=== PATIENT | male | born 1935 | race Caucasian/White ===

== ENCOUNTER → 2016-05-31 09:33 | Outpatient (CLI) | payer MEDICARE, OTHER ==
[~2016-05-31 09:33] MED LIST: ASPIRIN325 MG PO; FIBERCON625 MG PO; FLOMAX0.4 MG PO; HYDROCORTISONE30 G8 TOPICAL; IPRAT-ALBUT 0.5-3 ML UPD; Levaquin PO; METAMUCIL PACKE1 PKT PO; MIRALAX17 GM PO; MULTI-DAY VITAM1 TAB PO; MYSOLINE 50 MG50 MG PO; NYSTATIN ORAL SU5 ML PO; PRAVACHOL20 MG PO; PROTONIX40 MG PO; REMERON15 MG PO
[2016-08-20 15:58] VITALS: BMI 21.5
== END | disposition home or self-care (01) ==
LOC: D.CT 09:33
DX: R31.9 Hematuria, unspecified (principal)

== ENCOUNTER 2016-08-01 10:36 | Inpatient (IN) | payer MEDICARE, OTHER ==
[~2016-08-01] VITALS: Ht 177.8 cm; Wt 72.6 kg
--- NOTE | ~2016-08-01 | EC ---
PATIENT:GABI BRYSON JR DATE OF SERVICE: 08/01/16 SEX: M MEDICAL RECORD: [id number] DATE OF : 35 LOCATION:D[facility] AGE OF PATIENT: 81 ADMISSION DATE: 08/01/16 REFERRING PHYSICIAN: INTERPRETING PHYSICIAN: THU MONTES MD ECHOCARDIOGRAM REPORT ECHO CHARGES 4 ECHO COMPLETE CLINICAL DIAGNOSIS: CVA ASSESS FOR CLOTS ECHOCARDIOGRAPHIC MEASUREMENTS (adult normal given) AC root (d.<3.7cm) 4.1 LV Septum d (<1.2 cm> 1.4 Valve Excursion 1.7 LV Septum (systole) 1.6 Left Atria (s.<4.0cm> 3.4 LVPW d(<1.2cm) 1.3 RV (d.<2.3cm) 3.7 LVPW (sytole) 1.7 LV diastole(<5.6CM) 4.4 MV E-F(>70mm/sec) LV systole 3.2 LVOT Diameter 2.0 MV exc.(>10mm) 1.3 Est.ejection fraction (50-75%) Pericardial Effusion N DOPPLER: LVIT A 80.0 E 60.0 LA RVSP 44 LVOT 99 AOP1/2T 592 Asc. Ao 121 RVOT 87 RA PA 114 AV Gradient Peak 5.90 AV Mean 2.92 AV Area 2.6 MV Gradient Peak 3.81 MV Mean 1.76 MV Area COMMENTS: Generating Station Mechanic: Roberto LIEBERMAN Penal Officer:Alli Worley TAPE# PACS DATE OF SERVICE: 08/03/2016 Echocardiogram FINDINGS: 1. Left ventricular chamber size is within normal limits. Left ventricular systolic function is normal. Overall ejection fraction estimated at 55%. 2. Left atrium, right atrium, and right ventricular chamber sizes are within normal limits. 3. Valvular structures have normal structure and motion. ECHOCARDIOGRAM REPORT [id number] GABI BRYSON JR 4. Doppler interrogation reveals mild aortic insufficiency, mild mitral regurgitation, mild to moderate tricuspid regurgitation, no other valvular insufficiency or stenosis. Pulmonary systolic pressure is mildly elevated estimated at 44 mmHg. 5. No evidence of pericardial effusion or left ventricular thrombus. TRANSINT:[id number] Voice Confirmation ID: [id number] DOCUMENT ID: [id number] THU MONTES MD CC: [id number] DICTATION DATE: 08/03/16 1410 ART CONSULTANT: 08/03/16 1517 ADM IN [facility] [address] [id number]
[2016-08-01 11:39] LABS: BASOPHILS 0.3 % (0.0-2.0); EOSINOPHILS 0.3 % (0-7); HEMATOCRIT 35.8 % (42.0-54.0); IMMATURE GRANULOCYTES 0.3 % (0-5); MCH 31.9 pg (26.0-34.0); MCHC 33.5 g/dL (31.0-37.0); MCV 95.2 fL (80.0-100.0); NEUTROPHILS 49.1 % (40-80); PLATELET COUNT 152 10x3/uL (130-400); RBC 3.76 10x6/uL (4.20-6.10); RDW 14.8 % (11.5-14.5); WBC 3.1 10x3/uL (4.8-10.8)
[2016-08-01 12:10] LABS: ALBUMIN 4.1 g/dL (3.4-5.0); ANION GAP 12.6 mmol/L (8-16); BILIRUBIN - TOTAL 0.5 mg/dL (0.2-1.3); CALCIUM 9.6 mg/dL (8.5-10.1); CARBON DIOXIDE 26.5 mmol/L (21.0-32.0); CREATININE - SERUM 1.1 mg/dL (0.6-1.3); POTASSIUM - SERUM 4.1 mmol/L (3.5-5.1); PROTEIN - SERUM 7.6 g/dL (6.4-8.2)
[2016-08-01 14:22] LABS: APPEARANCE CLOUDY (CLEAR); COLOR YELLOW (YELLOW)
[2016-08-01 14:23] LABS: BACTERIA FEW /hpf (NONE SEEN); BILIRUBIN NEGATIVE (NEGATIVE); GLUCOSE NEGATIVE (NEGATIVE); KETONE NEGATIVE (NEGATIVE); LEUKOCYTE ESTERASE TRACE (NEGATIVE); NITRITE NEGATIVE (NEGATIVE); PROTEIN NEGATIVE (NEGATIVE); UROBILINOGEN NORMAL (NORMAL); WHITE CELLS - URINE OCC /hpf (0-5)
[2016-08-01 14:25] LABS: AMORPHOUS SEDIMENT >1+ /lpf (NONE SEEN); MUCUS <1+ /lpf (NONE SEEN)
--- NOTE | 2016-08-01 16:22 | NUR ---
RECEIVED TO ROOM 2218 FROM ER VIA . ORIENTED TO ROOM AND CALL LIGHT SYSTEM. FAMILY AT BEDSIDE. PHARMACY AND PASSWORD OBTAINED AND PLACED IN COMPUTER. BED ALARM ON. YELLOW WRIST BAND, NONSKIDS, AND YELLOW STAR IN PLACE. CALL LIGHT IN REACH. WILL CONTINUE WITH PLAN OF CARE.
[2016-08-01] MEDS ORDERED: MYSOLINE 50 MG50 MG PO (16:25)
[2016-08-01] MEDS ORDERED: FLOMAX0.4 MG PO (16:25)
[2016-08-01] MEDS ORDERED: MIRALAX17 GM PO (16:26)
[2016-08-01] MEDS ORDERED: MULTI-DAY VITAM1 TAB PO (16:27)
[2016-08-01] MEDS ORDERED: FIBERCON625 MG PO (16:27)
--- NOTE | 2016-08-01 16:59 | NUR ---
SCDs APPLIED TO BLE. TERESE MAT ALARM PLACED D/T BED ALARM NOT PROPERLY FUNCTIONING. IS GIVEN TO PATIENT AND EXPLAINED USE TO BOTH HIM AND HIS DAUGHTER. THEY BOTH VERBALIZED UNDERSTANDING. ICE TEA MADE AND GIVEN TO PATIENT.
[2016-08-01 17:09] VITALS: BP 146/68
[2016-08-01 17:49] VITALS: BP 146/68; BMI 23.0
--- NOTE | 2016-08-01 18:25 | NUR ---
SPOKE WITH BEN ABOUT UNCAFIB @ 121 BPM. NEW ORDER TO CONSULT CARDIOLOGY.
--- NOTE | 2016-08-01 18:35 | NUR ---
NO CHANGES IN INITIAL ASSESSMENT. CALL LIGHT IN REACH. SCDs TO BLE. TERESE MAT ALARM ON. DAUGHTER AT BEDSIDE. WILL CONTINUE WITH PLAN OF CARE.
--- NOTE | 2016-08-01 18:47 | NUR ---
PROTONIX 40 MG SIVP PER ORDER. DAUGHTER AT BEDSIDE. CALL LIGHT IN REACH. TERESE MAT ALARM IS STILL ON. INCENTIVE SPIROMETER IS AT BEDSIDE.
[2016-08-01 20:00] VITALS: BP 126/56
--- NOTE | 2016-08-01 20:00 | NUR ---
ASSESSMENT PER FLOWSHEET. SALINE LOCK PATENT RT FOREARM. PT ON TELM. SHOWS SR WITH HR 97. PT CONTINUES TO PULL ELECTRODES OFF. TERESE BED ALARM MAT ON. SR UP X3 CALL LIGHT WITHIN REACHED. YELLOW BAND ON. DOOR OPENED. SCD'S ON. INC URINE COMPLETE BED BATH AND LINENS CHANGED.
--- NOTE | 2016-08-01 21:15 | NUR ---
MEDS GIVEN PER MAR.
--- NOTE | 2016-08-01 22:30 | NUR ---
BED ALARM SOUNDING PATIENT CLIMBING OUT OF BED INC URINE. COMPLETE BED BATH WITH LINENS CHANGED REPLACED TELM. SR UP X3 TERESE BED ALARM MAT ON WITH ALARMS ACTIVATED. DOOR OPENED.
[2016-08-02] VITALS: BP 141/69
--- NOTE | 2016-08-02 01:00 | NUR ---
REMAINS CONFUSED GOT PT UP INTO WC AND SET AT NURSES STATION. CHOCOLATE MILK GIVEN A SNACK . PT LOOKING AT MAGAZINES.
--- NOTE | 2016-08-02 02:35 | NUR ---
RETURNED TOP BED TERESE BED ALARM MAT TURNED ON. SR UP X3 CALL LIGHT WITHIN REACH OFFERED URINAL.
--- NOTE | 2016-08-02 03:30 | NUR ---
EYES CLOSED RESPIRATIONS WITH EASE AND UNLABORED.
[2016-08-02 04:00] VITALS: BP 163/69
--- NOTE | 2016-08-02 04:29 | NUR ---
AROUSES TO VERBAL STIMULI ATTEMPTS TO CLIMB OUT OF BED REPOSITIONED IN BED ATTEMPTS MADE TO RE ORIENT TO TIME AND PLACE. PT RESTING IN BED SR UP X3 CALL LIGHT WITHIN REACH TERESE BED ALARM MAT ON.
--- NOTE | 2016-08-02 05:30 | NUR ---
WOKE UP FOR CXR. REMAINS CONFUSED. TERESE BED ALARM MAT ON ALARMS ACTIVATED.NO CHANGES IN ASSESSMENT.
[2016-08-02 06:40] LABS: HEMATOCRIT 32.8 % (42.0-54.0); HEMOGLOBIN 11.1 g/dL (13.5-17.5); MCHC 33.8 g/dL (31.0-37.0); MCV 94.5 fL (80.0-100.0); PLATELET COUNT 124 10x3/uL (130-400); RBC 3.47 10x6/uL (4.20-6.10); RDW 14.9 % (11.5-14.5)
[2016-08-02 06:42] LABS: INR 1.1 (0.85-1.17); PROTIME 14.1 SECONDS (11.6-15.0)
[2016-08-02 06:49] LABS: ALBUMIN 3.7 g/dL (3.4-5.0); ALKALINE PHOSPHATASE 60 U/L (46-116); ALT (SGPT) 22 U/L (10-68); AMYLASE - SERUM 58 U/L (25-115); CALC OSMOLALITY 268 mosm/kg (275-300); CARBON DIOXIDE 29.6 mmol/L (21.0-32.0); CHLORIDE - SERUM 98 mmol/L (98-107); GLUCOSE 95 mg/dL (74-106); LIPASE 164 U/L (73-393); POTASSIUM - SERUM 3.9 mmol/L (3.5-5.1); PROTEIN - SERUM 6.7 g/dL (6.4-8.2); SODIUM 132 mmol/L (136-145); UREA NITROGEN 23 mg/dL (7-18); eGFR NON AFRICAN AMERICAN 76 mL/min (90-120)
[2016-08-02 06:51] LABS: WBC 2.1 10x3/uL (4.8-10.8)
[2016-08-02 07:53] LABS: LYMPHOCYTES 44 % (15-50); MONOCYTES 2 % (2-11); NEUTROPHILS 51 % (40-80); PLATELET ESTIMATE NORMAL
[2016-08-02 07:57] VITALS: BP 158/72
[2016-08-02 13:04] VITALS: Ht 177.8 cm; Wt 72.6 kg
--- NOTE | 2016-08-02 15:12 | NUR ---
Patient Name: GABI BRYSON Admission Status: ER Accout number: [id number] Admission Date: 08-01-2016 : 1935 Admission Diagnosis: Attending: RYAN Current LOS: 1 Anticipated DC Date: 08-06-2016 Planned Disposition: Home with Home Health Primary Insurance: MEDICARE A & B Discharge Planning Comments: CM MET WITH PATIENTS (AARON) AND DAUGHTER (BEN) REGARDING D/C NEEDS AND PLANS. PATIENT WAS RESTING AT THIS TIME. FAMILY STATES THERE IS 1 STEP TO ENTER HOME AND NO STAIRS INSIDE. PATIENTS DAUGHTER STATED SHE WILL DRIVE HIM HOME AT DISCHARGE. PATIENTS PCP IS DR. TELLES AND PHARMACY IS [facility] [address]. PATIENTS DAUGHTER HAS BEEN HELPING HIM WITH PERSONAL CARE AND MEDICATIONS. PATIENT HAS NOT HAD HOME HEALTH BUT FAMILY HAS CHOSE [facility] AND SIGNED THE TEE FORM. CM WILL CONTINUE TO FOLLOW PATIENT WITH DISCHARGE NEEDS AND PLANS. PCP DR. KOKI ROSAS ON [address] [phone] BEN COREY (DAUGHTER) ([phone]) AARON BRYSON () [phone] [place] Department Supervisor: Blank Santillan How many steps to enter\exit or inside your home? 1 0 * PCP DR. TELLES 0 * Pharmacy [facility] [address] * Preadmission Environment Home with Family 0 * ADLs Partial Dependent 0 * Partial ADLs (Assistance needed) Ambulation Bathing Dressing Medication Management Toileting Transfers 0 * Equipment Walker 0 * List name and contact numbers for known caregivers / representatives who currently or will assist patient after discharge: BEN COREY (DAUGHTER) [phone] AARON BRYSON () [phone] 0 * Community resources currently utilized None 0 * Additional services required to return to the preadmission environment? Yes 0 * Can the patient safely return to the preadmission environment? Yes 0 * Has this patient been hospitalized within the prior 30 days at any hospital? No 0 Grand Total: 0
[2016-08-02 16:14] VITALS: BP 132/62
--- NOTE | 2016-08-02 17:36 | NUR ---
DAUGHTER AT BEDSIDE.PT AWAKENS INT,STILL VERY SLEEPY AND CONFUSED.HAS HAD SEVERAL BROWN LIQUID STOOLS.STILL UNABLE TO WAKE ENOUGH TO DRINK PREP.MONITOR
--- NOTE | 2016-08-02 18:33 | NUR ---
OT NOTE : PT COMPLETD BUE POSITIONING . THANK YOU, HALEIGH SURESH
--- NOTE | 2016-08-02 19:30 | NUR ---
PT RECEIVED RESTING IN BED WITH EYES CLOSED, DAUGHTER AT BEDSIDE. ASSESSMENT COMPLETED, SEE SHIFT ASSESSMENT. SCD'S IN PLACE. PT DENIES PAIN OR NEEDS AT THIS TIME. CALL LIGHT AND H2O IN PT REACH.
--- NOTE | 2016-08-02 19:40 | NUR ---
PT NOTED TO STILL HAVE FULL JUG OF GOLYTELY AT BEDSIDE. WILL ENCOURAGE PT TO COMPLETE DOSE.
--- NOTE | 2016-08-02 21:30 | NUR ---
PT RESTING IN BED WITH EYES CLOSED. NO S/S OF DISTRESS NOTED. PT DENIES PAIN OR NEEDS AT THIS TIME. CALL LIGHT AND H2O IN PT REACH.
--- NOTE | 2016-08-02 23:30 | NUR ---
PT UP IN BED WATCHING TELEVISION. PT HAD REMOVED SCD'S, GOWN, AND TELEMETRY. PT REPOSITIONED IN BED. TELEMETRY PUT BACK IN PLACE, PT DRESSED IN GOWN, AND SCD'S PUT BACK ON. PT THANKED THIS TAX SERVICES INTERN AND STATED, "I DON'T KNOW HOW I GOT ALL TANGLED UP LIKE THAT." PT NOTED TO BE NPO AFTER MIDNIGHT. CALL LIGHT IN PT REACH.
[2016-08-02 23:39] VITALS: BP 128/69
--- NOTE | 2016-08-03 04:00 | NUR ---
RN NOTE: PT LYING IN SUPINE POSITION WITH EYES CLOSED AND UNLABORED BREATHING. SCD'S IN USE ON BLE. IV IN RIGHT FA SALINE LOCKED. SIDE RAILS UP X2 AND BED ALARM ACTIVATED FOR SAFETY.
--- NOTE | 2016-08-03 04:09 | NUR ---
PT HAS ONLY COMPLETED 1/2 JUG OF GOLWell Beyond CareLY. PT STATES, "NO, DON'T THINK I CAN." WHEN ENCOURAGED TO COMPLETE DOSE. WILL CONTINUE TO ENCOURAGE.
--- NOTE | 2016-08-03 04:19 | NUR ---
PT REFUSES TO COMPLETE GOLYTLEY. CALLED [facility], REQUESTED TO SPEAK TO DR. CAGLE, INFORMED THAT THIS NURSE WILL RECEIVE A CALL BACK FROM DR. ARBOLEDA. AWAITING CALL RETURN.
--- NOTE | 2016-08-03 04:25 | NUR ---
RECEIVED CALL BACK FROM DR. ARBOLEDA. DR. ARBOLEDA NOTIFIED OF PT REFUSAL TO COMPLETE GOLYTELY DOSE. NO NEW ORDERS RECEIVED AT THIS TIME.
[2016-08-03 05:49] LABS: BASOPHILS 0.4 % (0.0-2.0); EOSINOPHILS 0.4 % (0-7); HEMATOCRIT 33.3 % (42.0-54.0); HEMOGLOBIN 11.3 g/dL (13.5-17.5); IMMATURE GRANULOCYTES 0.4 % (0-5); LYMPHOCYTES 43.3 % (15-50); MCH 31.9 pg (26.0-34.0); MCHC 33.9 g/dL (31.0-37.0); MCV 94.1 fL (80.0-100.0); MEAN PLATELET VOLUME 8.9 fL (7.4-10.4); MONOCYTES 0.4 % (2-11); NEUTROPHILS 55.1 % (40-80); PLATELET COUNT 117 10x3/uL (130-400); RBC 3.54 10x6/uL (4.20-6.10); WBC 2.4 10x3/uL (4.8-10.8)
[2016-08-03 06:15] LABS: RAPID PLASMA REAGIN Non Reactive (Non Reactive)
[2016-08-03 06:26] LABS: ALBUMIN 3.7 g/dL (3.4-5.0); ALKALINE PHOSPHATASE 65 U/L (46-116); ALT (SGPT) 24 U/L (10-68); CALC OSMOLALITY 268 mosm/kg (275-300); CALCIUM 8.7 mg/dL (8.5-10.1); CARBON DIOXIDE 27.3 mmol/L (21.0-32.0); CHLORIDE - SERUM 97 mmol/L (98-107); CHOL - HDL RATIO 7.1 ratio (2.3-4.9); CHOLESTEROL, TOTAL 184 mg/dL (0-200); GLUCOSE 104 mg/dL (74-106); HDL CHOLESTEROL 26 mg/dL (32-96); LDL CHOLESTEROL 125 mg/dL (0-100); LDL-HDL RATIO 4.8 ratio (1.5-3.5); POTASSIUM - SERUM 3.9 mmol/L (3.5-5.1); PROTEIN - SERUM 6.8 g/dL (6.4-8.2); SODIUM 133 mmol/L (136-145); TRIGLYCERIDE 169 mg/dL (30-200); UREA NITROGEN 20 mg/dL (7-18); eGFR NON AFRICAN AMERICAN 76 mL/min (90-120)
[2016-08-03 08:04] VITALS: BP 144/73
[2016-08-03 08:21] LABS: FOLATE (FOLIC ACID) - SERUM >20.0 ng/mL (>3.0)
--- NOTE | 2016-08-03 08:41 | NUR ---
PT SEEN EARILER AND ASSESSED. NO COMPLAINTS AT PRESENT. FAMILY AT BEDSIDE. NPO FOR EGD THIS AM-CONSENTS SIGNED AND ON CHART. BED ALARM ON AND ACTIVATED. YELLOW ARMBAND ON AND NON SKID SOCKS IN PLACE. CALL LIGHT IN REACH
--- NOTE | 2016-08-03 12:43 | NUR ---
INCONT OF URINE BED CHANGE.PT STILL VERY SEDATED AND MUST BE ASSIST X2 WHILE STANDING.VERY SHAKEY AND LEANS BACK.FALL PREVENTION IN PLACE.MONITOR FOR NEEDS
[2016-08-03 12:45] VITALS: BP 120/63
--- NOTE | 2016-08-03 13:38 | CN ---
PATIENT NAME:GABI BRYSON JR MEDICAL RECORD: [id number] : 35 LOCATION:D[facility] ADMIT DATE: 08/01/16 ACCOUNT: [id number] CONSULTING PHYSICIAN: AMRIT ANDRES MD REFERRING PHYSICIAN: GRETEL AQUINO MD DATE OF CONSULTATION: 08/02/2016 IDENTIFYING DATA: The patient is 81 years old and he is admitted to the hospital on a voluntary basis secondary to mental status changes. CHIEF COMPLAINT: None. HISTORY OF PRESENT ILLNESS: The patient is a very nice man who is not very helpful in giving history. He apparently has been living alone with his who is also advanced in years, but cognitively more intact. She has had a series of illnesses and has been hospitalized and in a rehab facility for some time on an intermittent basis. Apparently, in her absences he has not done well. He has not been eating or taking his medicines correctly, not been taking care of himself and is brought to the hospital for what are deemed acute mental status changes. The patient has a sodium that is slightly low, but his liver functions and other labs are fine. He apparently has a history of alcohol abuse, but reportedly quit drinking about 6 months ago when his became ill. When questioned about this, he says he is only cut back, but then he is evasive about what he likes to drink and how much he will drink. He is denying any thoughts of harming himself or others. He is very polite, cooperative and is giving the information has freely as he can, but it is clear that he is significantly impaired cognitively. MENTAL STATUS EXAMINATION: The patient is awake, alert and oriented to person and place and somewhat to time and situation. His mood is anxious. His affect is constricted. Thought processes are circumstantial. Memory, concentration and abstraction abilities are moderately impaired and he denies that he would seek to harm himself or others as well as overt psychotic symptoms. ASSESSMENT: 1. Probable alcohol abuse. 2. Dementia, type uncertain. PLAN: I think the patient is drinking and I think he is drinking more than he can relate to me. His liver functions are within normal limits, but that could simply mean that his liver is depleted, although he is not jaundiced, so that may not be the case. He also has a slightly low sodium, indicating the possibility that he is not been eating, but drinking beer. The sodium is not low enough in my view to account for the mental status changes even acutely. I do think he is impaired cognitively and although the alcohol may be a contributing factor I think there is an underlying dementia present and it has not been identified in the past because his has been able to guide, direct and ground help. At this point, I do not think he is acutely dangerous in any direct way, but he needs supervision. I do not know if his daughter is able to provide this, I have also been told the is back in the home and I do not know about her condition if she is able to provide it, but I think social service manager needs to be involved to make sure the patient is in a safe environment and is receiving the services that he needs. I would recommend starting a cholinesterase inhibitor. I would also recommend that efforts be made to ensure that he is not abusing alcohol. CONSULT REPORT [id number] GABI BRYSON JR TRANSINT:[id number] Voice Confirmation ID: [id number] DOCUMENT ID: [id number] AMRIT ANDRES MD at 1338 CC: [id number] DICTATION DATE: 08/02/16 1855 EDUCATION ADMINISTRATIVE ASSISTANT: 08/02/162026 ADM IN [facility] [address] [place] [address]
--- NOTE | 2016-08-03 14:34 | NUR ---
Rehab Prescreening Consult recieved and the chart has been reviewed. Yesterday he was so "sedated" he could not participate in therapy. He remains confused and disoriented today according to documentation. There are studies and consults still pending as well. Rehab will follow him while in the hospital to see if confusion clears and he is able to participate in the required therapy 3 hrs a day 5 days a week. Cele Thornton RN Clinical Liaison, Rehab
[2016-08-03 16:10] VITALS: BP 154/61
--- NOTE | 2016-08-03 16:58 | NUR ---
OT NOTE: PT GETTING ECHO IN AM; ATTEMPTED LATER AND HE HAD JUST RETURNED FROM COLONOSCOPY PROCEDURE , HE REMAINS CONFUSED. MET WITH DTR WHO PROVIDED INFO ON PLOF. SHE REPORTED THAT HE HAD BEEN CONTINUALLY DECLINING FOR SEVERAL WEEKS; ATTEMPTED THERAPY AGAIN IN PM, HOWEVER, HE WAS ASLEEP
--- NOTE | 2016-08-03 18:55 | NUR ---
ATE APPROX 50 % OF DINNER.REMAINS WITHOUT DISTRESS.CONT PLAN OF CARE
--- NOTE | 2016-08-03 19:30 | NUR ---
PT RECEIVED RESTING IN BED WITH EYES CLOSED. DAUGHTER AT BEDSIDE. PT REFUSES SCD'S. ASSESSMENT COMPLETE, SEE SHIFT ASSESSMENT. PT DENIES PAIN OR NEEDS AT THIS TIME. CALL LIGHT AND H2O IN PT REACH. BED IN LOW POSITION. SIDE RAILS UP X2.
[2016-08-03 20:33] VITALS: BP 148/70
[2016-08-04 00:17] VITALS: BP 119/63
--- NOTE | 2016-08-04 05:49 | NUR ---
UP IN BATHROM WHILE NURSE IS CHANGING BED AND CLEANING UP PATIENT. HE VOIDED IN THE BED. HE IS IN NO DISTRESS BUT IS VERY SHAKEY. THE BED IS LOW, RAILS UP X/S 2 WITH THE CALL LIGHT AT HE BEDSIDE. RESPIRATIONS ARE GOOD.
[2016-08-04 06:54] LABS: BASOPHILS 0.5 % (0.0-2.0); EOSINOPHILS 0.5 % (0-7); HEMATOCRIT 33.2 % (42.0-54.0); HEMOGLOBIN 11.3 g/dL (13.5-17.5); IMMATURE GRANULOCYTES 0.5 % (0-5); MCV 94.1 fL (80.0-100.0); MEAN PLATELET VOLUME 8.9 fL (7.4-10.4); MONOCYTES 3.3 % (2-11); NEUTROPHILS 54.2 % (40-80); PLATELET COUNT 119 10x3/uL (130-400); RBC 3.53 10x6/uL (4.20-6.10); RDW 14.8 % (11.5-14.5); WBC 2.1 10x3/uL (4.8-10.8)
--- NOTE | 2016-08-04 07:00 | NUR ---
REPORT RECEIVED FROM INSTRUMENT MECHANIC NURSE. CALL LIGHT IN REACH.
[2016-08-04 07:12] LABS: ALBUMIN 3.6 g/dL (3.4-5.0); ANION GAP 13.9 mmol/L (8-16); BILIRUBIN - TOTAL 0.73 mg/dL (0.2-1.3); CALCIUM 8.8 mg/dL (8.5-10.1); CARBON DIOXIDE 26.2 mmol/L (21.0-32.0); CREATININE - SERUM 1.1 mg/dL (0.6-1.3); POTASSIUM - SERUM 4.1 mmol/L (3.5-5.1); PROTEIN - SERUM 6.9 g/dL (6.4-8.2)
--- NOTE | 2016-08-04 08:15 | NUR ---
ASSESSMENT COMPLETED. NEURO CHECK COMPLETED. REFUSES SCDs. TERESE MAT ALARM IS ON. CALL LIGHT IN REACH. WILL CONTINUE WITH PLAN OF CARE.
[2016-08-04 08:24] VITALS: BP 147/72
[2016-08-04 10:12] LABS: FOLATE (FOLIC ACID) - SERUM >20.0 ng/mL (>3.0)
--- NOTE | 2016-08-04 10:33 | NUR ---
SITTING IN CHAIR PER PT. AM MEDS ADMINISTERED. TERESE MAT ALARM ON. CALL LIGHT IN REACH.
--- NOTE | 2016-08-04 10:35 | NUR ---
PATIENT SITTING UP IN CHAIR ALERT. RESPIRATIONS EVEN AND UNLABORED. PRIMARY NURSE DURAN, REFLECTOR DRILLER AND DEBURRER AT BEDSIDE. CALL LIGHT IN REACH.
[2016-08-04 12:14] VITALS: BP 133/72
--- NOTE | 2016-08-04 12:30 | NUR ---
VISITOR IN ROOM AT THIS TIME. CALL LIGHT IN REACH.
--- NOTE | 2016-08-04 14:38 | NUR ---
AMBULATED IN HALLWAY WITH PHYSICAL THERAPY. NOW RESTING WITH EYES CLOSED. RESP EVEN AND UNLABORED. TERESE MAT ALARM ON.
[2016-08-04 16:30] VITALS: BP 111/57
--- NOTE | 2016-08-04 16:46 | NUR ---
FAMILY AT BEDSIDE. NO DISTRESS NOTED. CALL LIGHT IN REACH.
--- NOTE | 2016-08-04 18:01 | NUR ---
FAMILY CONCERNED THAT PATIENT HAS MITES. CHECKED PER HEATH PEARSON. NO ACTIVE MITES SEEN. PATIENT SCRATCHING AND CLAWING. AT HIMSELF. SPOKE WITH DR. AQUINO. NEW ORDERS RECEIVED. WILL NOTIFY FORMING MILL OPERATOR. NO OTHER CHANGES IN INITIAL ASSESSMENT. FAMILY IN ROOM. TERESE MAT ALARM ON. STILL REFUSES SCDs. CALL LIGHT IN REACH. WILL CONTINUE WITH PLAN OF CARE.
[2016-08-04 20:00] VITALS: BP 118/56
[2016-08-05] VITALS: BP 133/57
--- NOTE | 2016-08-05 01:48 | NUR ---
REC'D PATIENT LYING IN BED DAUGHTER WAS AT BEDSIDE. NO DISTRESS NOTED. ALERT AND ORIENT ONLY TO PERSON. DENIED PAIN AT THIS TIME. DENIED FURTHER NEEDS AT THIS TIME. INTRUCTED TO CALL IF NEEDED ANYTHING. BED LOW, LOCKED, CALL LIGHT IN REACH, ALARM ON.
--- NOTE | 2016-08-05 01:50 | NUR ---
MILLIE GOODWIN GAVE PATIENT A BATH AND CHANGED LINENS, I CAME BACK AND PATIENT WAS OOB GOING TO THE BATHRROM, ALARM WAS SOUNDING. HIS BED WAS WET CHANGED LINENS AGAIN AND LAYED HIM BACK DOWN. INSTRUCTED TO CALL IF NEEDED ANYTHING. BED LOW, LOCKED, CALL LIGHT IN REACH, ALARM ON.
--- NOTE | 2016-08-05 03:03 | NUR ---
PATIENT IS RESTING IN BED. NO DISTRESS NOTED. DENIED PAIN AT THIS TIME. DENIED FURTHER NEEDS. INSTRUCTED TO USE HIS CALL LIGHT IF NEEDED ANYTHING. VERBALIZED UNDERSTANDING. BED LOW, LOCKED, CALL LIGHT IN REACH.
[2016-08-05 04:00] VITALS: BP 145/52
--- NOTE | 2016-08-05 04:33 | NUR ---
PATIENT RESTING IN BED WITH EYES CLOSED, NO VISIBLE SIGNS OF DISTRESS. BED IN LOWEST POSITION AND CALL LIGHT WITHIN REACH.
[2016-08-05 05:30] LABS: BASOPHILS 0.5 % (0.0-2.0); EOSINOPHILS 0.5 % (0-7); HEMATOCRIT 32.4 % (42.0-54.0); IMMATURE GRANULOCYTES 0.5 % (0-5); LYMPHOCYTES 40.6 % (15-50); MCH 31.9 pg (26.0-34.0); MCV 93.9 fL (80.0-100.0); MEAN PLATELET VOLUME 8.9 fL (7.4-10.4); MONOCYTES 4.1 % (2-11); NEUTROPHILS 53.8 % (40-80); PLATELET COUNT 120 10x3/uL (130-400); RBC 3.45 10x6/uL (4.20-6.10); RDW 14.9 % (11.5-14.5); WBC 2.2 10x3/uL (4.8-10.8)
[2016-08-05 06:02] LABS: ALBUMIN 3.5 g/dL (3.4-5.0); ANION GAP 12.8 mmol/L (8-16); BILIRUBIN - TOTAL 0.51 mg/dL (0.2-1.3); CALCIUM 8.5 mg/dL (8.5-10.1); CREATININE - SERUM 1.2 mg/dL (0.6-1.3); POTASSIUM - SERUM 3.8 mmol/L (3.5-5.1); PROTEIN - SERUM 6.8 g/dL (6.4-8.2)
--- NOTE | 2016-08-05 07:35 | NUR ---
WALKING ROUNDS,WITHOUT DISTRESS. ASSESSMENT PER FLOW SHEET.PT DENIES NEEDS. CALL LIGHT IN REACH.FALL PRVENTION IN PROGRESS.
[2016-08-05 08:14] VITALS: BP 128/67
--- NOTE | 2016-08-05 12:00 | NUR ---
BITES OF FOOD FOR LUNCH.PT WITHOUT DISTRESS.CALL LIGHT IN REACH
[2016-08-05 12:44] VITALS: BP 139/59
[2016-08-05 15:50] VITALS: BP 122/57
[2016-08-05 19:00] VITALS: BP 130/68
--- NOTE | 2016-08-05 19:47 | NUR ---
UP IN CHAIR FOR DINNER.FEEDING SELF.WITHOUT DISTRESS.WITHOUT CHANGE.CONT PLAN OF CARE
--- NOTE | 2016-08-05 20:00 | NUR ---
ASSESSMENT PER FLOWSHEET. SITTING UP IN CHAIR AT BEDSIDE. RELATIVE AT BEDSIDE. CHAIR ALARM ON. IV SALINE LOCK TO RT WRIST. ASSISTED BACK TO BED SR UP X3 CALL LIGHT WITHIN REACH TERESE BED ALARM MAT. ON.
--- NOTE | 2016-08-05 21:30 | NUR ---
MEDS GIVEN PER JUN. GIVEN IN JUICE.
[2016-08-06] VITALS: BP 132/68
--- NOTE | 2016-08-06 | NUR ---
EYES CLOSED RESPIRATIONS WITH EASE AND UNLABORED.
--- NOTE | 2016-08-06 01:49 | NUR ---
AWAKE TRYING TO GET OUT OF BED. BED ALARM SOUNDING. ASSISTED IN BED REPOSITIONED BED ALARM MAT REACTIVATED. SR UP X3. CALL LIGHT WITHIN REACH.
--- NOTE | 2016-08-06 02:30 | NUR ---
PLACED URINAL VOIDED 125CC'S JESE COLORED URINE.
[2016-08-06 04:00] VITALS: BP 142/69
--- NOTE | 2016-08-06 04:23 | NUR ---
RESTING QUIETLY SR UP X3 TERESE BED ALARM MAT ON
[2016-08-06 06:07] LABS: BASOPHILS 0.5 % (0.0-2.0); EOSINOPHILS 0.5 % (0-7); HEMATOCRIT 32.8 % (42.0-54.0); HEMOGLOBIN 10.9 g/dL (13.5-17.5); IMMATURE GRANULOCYTES 0.5 % (0-5); LYMPHOCYTES 46.2 % (15-50); MCH 31.5 pg (26.0-34.0); MCHC 33.2 g/dL (31.0-37.0); MCV 94.8 fL (80.0-100.0); NEUTROPHILS 49.3 % (40-80); PLATELET COUNT 115 10x3/uL (130-400); RBC 3.46 10x6/uL (4.20-6.10)
[2016-08-06 06:31] LABS: ALBUMIN 3.5 g/dL (3.4-5.0); ANION GAP 13.6 mmol/L (8-16); BILIRUBIN - TOTAL 0.51 mg/dL (0.2-1.3); CALCIUM 8.6 mg/dL (8.5-10.1); CARBON DIOXIDE 26.3 mmol/L (21.0-32.0); CREATININE - SERUM 1.2 mg/dL (0.6-1.3); POTASSIUM - SERUM 3.9 mmol/L (3.5-5.1); PROTEIN - SERUM 6.8 g/dL (6.4-8.2)
--- NOTE | 2016-08-06 07:30 | NUR ---
RECIEVED PT DURING WALKING ROUNDS. PT RESTING COMFORTABLY IN BED WITH NO COMPLAINTS OF PAIN OR DISCOMFORT AT THIS TIME. PT ORIENTED TO SELF AND PLACE ONLY. BED ALARM ON AND FUNCTIONING PROPLERLY. ASSESSMENT DONE PER FLOWSHEET. BED IN LOW POSITION AND CALL LIGHT WITHIN REACH. WILL CONTINUE TO MONITOR.
[2016-08-06 08:34] VITALS: BP 139/70
[2016-08-06 11:25] VITALS: BP 132/64
[2016-08-06] MEDS ORDERED: IPRAT-ALBUT 0.5-3 ML UPD ×2 (11:51)
[2016-08-06] MEDS ORDERED: REMERON15 MG PO (11:51)
[2016-08-06] MEDS ORDERED: ASPIRIN325 MG PO (11:51)
[2016-08-06] MEDS ORDERED: HYDROCORTISONE30 G8 TOPICAL (11:52)
[2016-08-06] MEDS ORDERED: PROTONIX40 MG PO (11:52)
--- NOTE | 2016-08-06 12:46 | NUR ---
OT NOTE: PT REPORTED THAT HE WAS FEELING GOOD; PERFORMED BED MOB AND STATIC/DYNAMIC SITTNG ON EDGE OF BED WHILE PERFORMING UE AROM EXS; PT CONT TO PERSEVERATE ON WORDS..TODAY, HE WAS ASKED HIS NAME, HE STATED ,"SHIRA THOMAS" . THEN THIS WORD WAS THE ANSWER FOR EVERYTHING FOR NEXT SEVERAL QUESIONS. UNABLE TO STATE ANY FAMILY MEMBERS OR NAMES; DISORIENTED TO TIME, PLACE, AND SITUATION. SIT TO STAND WITH MIN/MOD ASSIST FOR STANDING BALANCE, HOWEVER, WAS ABLE TO FOLLOW APPROX 75% SIMPLE COMMANDS WITH LESS REDIRECTION THAN LAST WEEK
--- NOTE | 2016-08-06 15:18 | NUR ---
CM REASSESSMENT NOTE: PATIENT IS DISCHARGING TO IP REHAB TODAY. D/C IMM NOTICE SERVED AND SIGNED
[2016-08-06 15:40] VITALS: BP 131/64
--- NOTE | 2016-08-06 16:20 | NUR ---
CM REASSESSMENT NOTE: PATIENT IS NOT DISCHARGING TO IP REHAB DUE TO FURTHER TESTING BY DR. DEL CID.
--- NOTE | 2016-08-06 18:28 | NUR ---
PATIENT IS SITTING UP IN CHAIR. FAMILY MEMBER AT BEDSIDE. RESPIRATIONS ARE EVEN AND UNLABORED ON ROOM AIR. BOTH DENY NEEDS. CALL LIGHT IN REACH.
[2016-08-06 19:00] VITALS: BP 149/72
--- NOTE | 2016-08-06 20:00 | NUR ---
ASSESSMENT PER FLOWSHEET. PT SITTING UP IN CHAIR AT BEDSIDE TERESE MAT IN CHAIR ALARMS ACTIVATED. SALINE LOCK PATENT RT ARM SITE CLEAR. NO FREE WATER.
--- NOTE | 2016-08-06 21:00 | NUR ---
MEDS GIVEN WITH TEA ASSISTED TO BED BRIEFS CHANGED PT INCONTINENT OF URINE. TERESE BED ALARM MAT IN PLACE AND ACTIVATED. DOOR OPENED. SR UP X3.
[2016-08-07] VITALS: BP 144/71
--- NOTE | 2016-08-07 | NUR ---
AREPOSITIONED IN BED SR UP X3 CALL LIGHT WITHIN REACH.NPO FOR BONE MARROW BX IN AM.
[2016-08-07 06:02] LABS: BASOPHILS 0.5 % (0.0-2.0); EOSINOPHILS 0.5 % (0-7); HEMATOCRIT 34.6 % (42.0-54.0); HEMOGLOBIN 11.5 g/dL (13.5-17.5); LYMPHOCYTES 47.2 % (15-50); MCH 31.6 pg (26.0-34.0); MCHC 33.2 g/dL (31.0-37.0); MCV 95.1 fL (80.0-100.0); MONOCYTES 2.8 % (2-11); PLATELET COUNT 114 10x3/uL (130-400); RBC 3.64 10x6/uL (4.20-6.10); RDW 14.9 % (11.5-14.5); WBC 2.2 10x3/uL (4.8-10.8)
[2016-08-07 06:40] LABS: ALBUMIN 3.8 g/dL (3.4-5.0); ANION GAP 13.6 mmol/L (8-16); BILIRUBIN - TOTAL 0.91 mg/dL (0.2-1.3); CALCIUM 8.7 mg/dL (8.5-10.1); CARBON DIOXIDE 27.7 mmol/L (21.0-32.0); CREATININE - SERUM 1.1 mg/dL (0.6-1.3); POTASSIUM - SERUM 4.3 mmol/L (3.5-5.1); PROTEIN - SERUM 6.8 g/dL (6.4-8.2)
--- NOTE | 2016-08-07 07:15 | NUR ---
REPORT RECEIVED FROM HITCHER NURSE. CALL LIGHT IN REACH.
[2016-08-07 08:10] VITALS: BP 142/66
--- NOTE | 2016-08-07 09:15 | NUR ---
IN IR AT THIS TIME.
--- NOTE | 2016-08-07 11:20 | NUR ---
BACK IN ROOM AT THIS TIME. VSS. NO PAIN VOICED. CALL LIGHT IN REACH.
[2016-08-07 11:32] VITALS: BP 135/61
--- NOTE | 2016-08-07 13:10 | NUR ---
SLEEPING AT THIS TIME. RESPIRATIONS EVEN AND NON LABORED. SRX2 WIT BED IN LOWEST POSITION AND WHEELS LOCKED. CALL LIGHT IN REACH, WILL CONTINUE WITH PLAN OF CARE.
--- NOTE | 2016-08-07 14:51 | NUR ---
CM REASSESSMENT NOTE: PATIENT IS DISCHARGING TO IP REHAB TODAY/IMM YESTERDAY
--- NOTE | 2016-08-07 15:25 | NUR ---
MEDS ADMINISTERED PER ORDER. IN ROOM. CALL LIGHT IN REACH.
[2016-08-07 16:44] VITALS: BP 148/71
--- NOTE | 2016-08-07 16:50 | NUR ---
REPORT CALLED TO HEATH ASHLEY.
--- NOTE | 2016-08-07 16:55 | NUR ---
DC INSTRUCTIONS EXPLAINED TO AND SIGNED BY . WANTS HIM TO EAT BEFORE TRANSFERRING HIM.
--- NOTE | 2016-08-07 18:28 | NUR ---
WAITING TO TAKE PATIENT DOWN TO REHAB.
--- NOTE | 2016-08-07 19:07 | NUR ---
TRANSFERRED TO REHAB ROOM 1108B VIA BED.
--- NOTE | 2016-08-10 15:03 | PRO ---
PATIENT:GABI ROSE JR MEDICAL RECORD: [id number] : 35 LOCATION:[id number] ADMISSION DATE: 08/01/16 PROCEDURE PERFORMED BY: LEOPOLDO CAGLE MD DATE OF PROCEDURE: 08/03/2016 PROCEDURES: EGD with biopsy and colonoscopy with biopsy. INDICATIONS: Mr. Rose is an 81-year-old gentleman, who presents to the Emergency Department (with his daughter) with acute mental status changes, history of frequent falls and progressive weakness. Per his daughter's history, he has had poor appetite, become easily fatigued, he has increased somnolence along with the multiple falls. He has become incontinent of bowel and bladder. He has a history of alcohol use "frequent" but not "heavy." He quit drinking 6-7 months ago when his became ill. He has had progressive weight loss, inanition and poor appetite. He presents for inpatient EGD and colonoscopy. PREMEDICATIONS: Total IV anesthesia (propofol 300 mg). INSTRUMENTS: Olympus video gastroscope and Olympus video colonoscope. PROCEDURE AND FINDINGS: After receiving informed consent, Mr. Sanchez's posterior pharynx was anesthetized with Cetacaine spray, was placed in left lateral decubitus position, sedated as per anesthesia. After achieving an adequate level of sedation, gastroscope was introduced per orally and advanced to the duodenum without difficulty. The esophageal mucosa was without erythema or ulcers. At the GE junction was a partial nonobstructing (asymptomatic) Schatzki ring through which the scope transversed easily. A small hiatal hernia is present. Gastric mucosa was notable for minimal prepyloric and antral erythema and antral biopsies were obtained to rule out Helicobacter pylori. No lesions were seen in the cardia, fundus, body of the stomach, antrum or along the incisura. Pylorus was patent and competent. Duodenal mucosa was without erythema or ulcers. Biopsies were obtained from the second portion of duodenum to rule out celiac disease. The gastroscope was then withdrawn. He is prepared for colonoscopy. Digital rectal exam was performed that showed no external hemorrhoidal tags, fissures or fistulas, normal sphincter tone, no palpable rectal masses. The colonoscope was introduced per rectally and advanced to the cecum without difficulty. The cecum, IC valve, and appendiceal orifice were identified. Within the cecum was a diminutive polyp that was cold biopsied. The IC valve was prominent and was biopsied. In the mid ascending colon was a 0.3 cm sessile polyp removed with cold biopsy forcep technique. In the sigmoid colon adjacent to a diverticulum was a 0.75 cm sessile polyp that was removed piecemeal with multiple cold biopsy forceps technique. Multiple diverticula were seen throughout the colon (moderate). Retroflexion in the rectum showed mild internal hemorrhoids. There was thick liquid stool present throughout the colon, but no obvious masses or obstructive lesions were noted. There was no blood seen in the colon. Mr. Roes tolerated the procedure well, no immediate complications. ASSESSMENT: 1. Partial nonobstructing Schatzki ring at the GE junction. 2. Small hiatal hernia. 3. Mild gastritis. PROCEDURE NOTE [id number] BRAYDONGABI 4. Small cecal and ascending colon polyp, status post cold biopsy. 5. Moderate-sized sigmoid polyp, status post cold biopsy. 6. Moderate pandiverticulosis coli. 7. Mild internal hemorrhoids. 8. No obvious upper or lower gastrointestinal etiology to explain inanition and weight loss. RECOMMENDATIONS: 1. Follow up histopathology. 2. Consider hematology/oncology consult regarding pancytopenia. TRANSINT:[id number] Voice Confirmation ID: [id number] DOCUMENT ID: [id number] LEOPOLDO CAGLE MD at 1503 CC: [id number] DICTATION DATE: 08/03/16 1056 CENSUS TAKER: 08/03/162116 DIS IN 08/07/16 [place] [id number] [place] [id number]
== END 2016-08-07 19:07 | DRG 988 ==
LOC: D.ER 10:36 → D.MS 15:15
PROVIDERS: Family Medicine; Internal Medicine Gastroenterology; Internal Medicine Hematology & Oncology; Psychiatry & Neurology Neurology; ADMIT Emergency Medicine
PROC: 0DB68ZX Excision of Stomach, Via Natural or Artificial Opening Endoscopic, Diagnostic (ICD-10-PCS; 2016-08-03)
PROC: 0DBK8ZX Excision of Ascending Colon, Via Natural or Artificial Opening Endoscopic, Diagnostic (ICD-10-PCS; 2016-08-03)
PROC: 0DBN8ZX Excision of Sigmoid Colon, Via Natural or Artificial Opening Endoscopic, Diagnostic (ICD-10-PCS; 2016-08-03)
PROC: 0DBH8ZX Excision of Cecum, Via Natural or Artificial Opening Endoscopic, Diagnostic (ICD-10-PCS; 2016-08-03)
PROC: 0DB98ZX Excision of Duodenum, Via Natural or Artificial Opening Endoscopic, Diagnostic (ICD-10-PCS; principal; 2016-08-03 09:00)
PROC: 0QB33ZX Excision of Left Pelvic Bone, Percutaneous Approach, Diagnostic (ICD-10-PCS; 2016-08-07)
PROC: 07DR3ZX Extraction of Iliac Bone Marrow, Percutaneous Approach, Diagnostic (ICD-10-PCS; 2016-08-07)
DX: I63.9 Cerebral infarction, unspecified (principal); E87.1 Hypo-osmolality and hyponatremia; E46 Unspecified protein-calorie malnutrition; D61.818 Other pancytopenia; R41.89 Other symptoms and signs involving cognitive functions and awareness; F03.90 Unspecified dementia, unspecified severity, without behavioral disturbance, psychotic disturbance, mood disturbance, and anxiety; R53.1 Weakness; N40.0 Benign prostatic hyperplasia without lower urinary tract symptoms; R15.9 Full incontinence of feces; Z86.73 Personal history of transient ischemic attack (TIA), and cerebral infarction without residual deficits; R32 Unspecified urinary incontinence; Z91.81 History of falling; D12.2 Benign neoplasm of ascending colon; D12.0 Benign neoplasm of cecum; D12.5 Benign neoplasm of sigmoid colon; K22.2 Esophageal obstruction; K44.9 Diaphragmatic hernia without obstruction or gangrene; K29.70 Gastritis, unspecified, without bleeding; Z68.23 Body mass index [BMI] 23.0-23.9, adult; K57.90 Diverticulosis of intestine, part unspecified, without perforation or abscess without bleeding; K64.8 Other hemorrhoids; F10.10 Alcohol abuse, uncomplicated; R40.2143 Coma scale, eyes open, spontaneous, at hospital admission; R40.2243 Coma scale, best verbal response, confused conversation, at hospital admission; R40.2363 Coma scale, best motor response, obeys commands, at hospital admission

== ENCOUNTER 2016-08-07 13:31 | Inpatient (IN) | payer MEDICARE, OTHER ==
[~2016-08-07] VITALS: Ht 177.8 cm; Wt 72.6 kg
[~2016-08-07 13:31] MED LIST changes: -Levaquin PO; -METAMUCIL PACKE1 PKT PO; -NYSTATIN ORAL SU5 ML PO; -PRAVACHOL20 MG PO
--- NOTE | 2016-08-07 19:05 | NUR ---
ADMITTED TO UNIT VIA BED, ACCOMPANIED BY FAMILY MEMBER AND ACUTE UNIT STAFF. TERESE ALARM EMPLACED BED ALARM IS INOPERATIVE. ORIENTED X1 ONLY. DROWSY.
[2016-08-07 20:29] VITALS: BP 144/109
--- NOTE | 2016-08-07 21:45 | NUR ---
RESTING IN BED, EYES CLOSED.
--- NOTE | 2016-08-07 23:45 | NUR ---
ADMISSION ASSESSMENT COMPLETE. NOTED PATIENT HAS BOTH DYSPHAGIA WHEN SWALLOWING THIN FLUIDS OR SMALL ORAL MEDS IN APPLESAUCE AND I BELIEVE HE ALSO HAS MILD EXPRESSIVE APHASIA, NEITHER OF WHICH WAS REPORTED BY ACUTE CARE NURSE WHO DELIVERED PATIENT TO US EARLIER KEENA.
--- NOTE | 2016-08-08 02:10 | NUR ---
RESTING IN BED, EYES CLOSED.
--- NOTE | 2016-08-08 04:40 | NUR ---
RESTING QUIETLY IN BED, EYES CLOSED.
[2016-08-08 06:17] LABS: BASOPHILS 0 % (0.0-2.0); EOSINOPHILS 0 % (0-7); HEMATOCRIT 34.8 % (42.0-54.0); HEMOGLOBIN 11.5 g/dL (13.5-17.5); IMMATURE GRANULOCYTES 0.5 % (0-5); LYMPHOCYTES 45.3 % (15-50); MCH 31.7 pg (26.0-34.0); MCV 95.9 fL (80.0-100.0); MEAN PLATELET VOLUME 8.9 fL (7.4-10.4); MONOCYTES 3.4 % (2-11); NEUTROPHILS 50.8 % (40-80); PLATELET COUNT 132 10x3/uL (130-400); RBC 3.63 10x6/uL (4.20-6.10); RDW 14.7 % (11.5-14.5)
--- NOTE | 2016-08-08 06:30 | NUR ---
REMAINS IN BED. CURRENTLY IS DRY TO URINE. TOOK SCHEDULED PROTONIX 40MG PO, WHOLE IN APPLESAUCE WITH CUEING AND SWALLOWING DELAY. HANDLED WATER BETTER THIS MORNING, BUT REQUIRED CUEING TO TAKE SIPS AND TO CONCENTRATE ON SWALLOWING.
[2016-08-08 07:01] LABS: CALC OSMOLALITY 276 mosm/kg (275-300); CALCIUM 9.1 mg/dL (8.5-10.1); CARBON DIOXIDE 25.8 mmol/L (21.0-32.0); CHLORIDE - SERUM 99 mmol/L (98-107); GLUCOSE 83 mg/dL (74-106); POTASSIUM - SERUM 4.4 mmol/L (3.5-5.1); SODIUM 136 mmol/L (136-145); UREA NITROGEN 28 mg/dL (7-18); eGFR NON AFRICAN AMERICAN 76 mL/min (90-120)
--- NOTE | 2016-08-08 07:10 | NUR ---
INTRODUCED SELF TO PT, PT STATES NO NEEDS AT THIS TIME, WILL CONTINUE TO MONITOR, CALL LIGHT WITHIN REACH.
--- NOTE | 2016-08-08 09:54 | NUR ---
MORNING MEDICATION GIVEN, PT HAD SLIGHT PROBLEM SWOLLING WATER, OFFERED THICKENED WATER AND PT TOLERATED BETTER, WILL KEEP PT HEAD OF BED ELEVATED, WILL CONTINUE TO MONITOR, CALL LIGHT WITHIN REACH.
[2016-08-08 10:23] VITALS: BP 129/64
--- NOTE | 2016-08-08 12:40 | NUR ---
PT SITTING IN CHAIR EATING LUNCH, PT STATES NO NEEDS AT THIS TIME, WILL CONTINUE TO MONITOR, CALL LIGHT WITHIN REACH.
[2016-08-08 13:23] VITALS: Ht 177.8 cm; Wt 72.6 kg
--- NOTE | 2016-08-08 14:07 | NUR ---
PT SITTING UP IN CHAIR WATCHING TV, PT STATES NO NEW NEEDS AT THIS TIME, WILL CONTINUE TO MONITOR, CALL LIGHT WITHIN REACH.
--- NOTE | 2016-08-08 15:50 | NUR ---
OT ASSISTING PT WITH SHOWER. WILL CONTINUE TO MONITOR.
--- NOTE | 2016-08-08 16:06 | NUR ---
PT VISITING WITH DAUGHTER, WILLL CONTINUE TO MONITOR, CALL LIGHT WITHIN REACH.
--- NOTE | 2016-08-08 18:22 | NUR ---
PT RESTING IN BED VISITING WITH DAUGHTER AND SON, PT STATES NO NEEEDS AT THIS TIME, WILL CONTINUE TO MONITOR, CALL LIGHT WITHIN REACH.
[2016-08-08 19:15] VITALS: BP 128/74
--- NOTE | 2016-08-08 19:30 | NUR ---
PT. IN BED WITH HOB UP FOR COMFORT AND WATCHING TV. PT. VERY APHASIC AND UNABLE TO ANSWER QUESTIONS APPROPRIATELY. FACIAL EXPRESSION CALM AND VOICE CALM WHEN HE SPEAKS. ASSESSMENT COMPLETED. PT. HAS HIS CALL LIGHT WITHIN REACH.
--- NOTE | 2016-08-08 21:31 | NUR ---
PT. IN BED WITH HOB UP FOR COMFORT WITH EYES CLOSED AND RESP. EVEN. CALL LIGHT WITHIN REACH.
--- NOTE | 2016-08-08 23:31 | NUR ---
PT. IN BED WITH HOB UP FOR COMFORT AND IS AWAKE AND WATCHING TV. NO VOICED NEEDS AND CALL LIGHT IS WITHIN REACH.
--- NOTE | 2016-08-09 01:25 | NUR ---
PT. IN BED WITH HOB UP FOR COMFORT WITH EYES CLOSED AND RESP. DEEP AND EVEN. CALL LIGHT WITHIN REACH.
--- NOTE | 2016-08-09 03:16 | NUR ---
PT. IN BED WITH HOB UP FOR COMFORT LYING ON HIS RIGHT SIDE. EYES CLOSED AND RESP. DEEP AND EVEN. CALL LIGHT WITHIN REACH.
--- NOTE | 2016-08-09 07:30 | NUR ---
RESTING QUIETLY IN BED. EYES CLOSED. NO S/S DISTRESS. SLOW TO AROUSE AND ANSWER QUESTIONS. IS CONFUSED.
[2016-08-09 08:31] VITALS: BP 121/62
--- NOTE | 2016-08-09 12:15 | NUR ---
SITTING UP IN ROOM. SON VISITING PT. PT IS CONFUSED AND QUIET. FOLLOWS SOME SIMPLE COMMANDS. MOD ASST TO TRANSFER.
--- NOTE | 2016-08-09 19:30 | NUR ---
PT. IN BED WITH HOB UP FOR COMFORT AND HAS FAMILY VISITING. PT'S APHASIA HAS NOT GOTTEN ANY BETTER PER THE FAMILY. ASSESSMENT COMPLETED. CALL LIGHT WITHIN REACH.
--- NOTE | 2016-08-09 19:30 | NUR ---
FAMILY REPORTING THAT PT. IS PICKING AT HIS IV SITE AND REQUESTS IT BE REMOVED. PER ASEPTIC TECHNIQUE RT. FOREARM PERIPHERAL IV REMOVED WITH CATHETER TIP INTACT. PRESSURE HELD AND NO VISIBLE BLEEDING OBSERVED. BANDAID APPLIED. PT. TOLERATED PROCEDURE WITHOUT COMPLAINTS. CALL LIGHT REMAINS WITHIN REACH AND FAMILY AT BEDSIDE.
[2016-08-09 21:53] VITALS: BP 126/68
--- NOTE | 2016-08-09 23:11 | NUR ---
PT. IN BED WITH HOB UP FOR COMFORT WITH EYES CLOSED AND RESP. EVEN. CALL LIGHT WITHIN REACH.
--- NOTE | 2016-08-10 02:03 | NUR ---
PT. IN BED WITH HOB UP FOR COMFORT WITH EYES CLOSED AND RESP. EVEN. PT IS RESTLESS IN THE BED BUT REMAINS ASLEEP. CALL LIGHT WITHIN REACH.
--- NOTE | 2016-08-10 04:06 | NUR ---
PT. IN BED LYING ON HIS RIGHT SIDE AND HAS THE BLANKET PULLED ALL THE WAY UP UNDER HIS CHIN. EYES ARE CLOSED AND RESP. EVEN. CALL LIGHT WITHIN REACH.
[2016-08-10 06:43] LABS: BASOPHILS 0 % (0.0-2.0); HEMATOCRIT 34.4 % (42.0-54.0); HEMOGLOBIN 11.3 g/dL (13.5-17.5); LYMPHOCYTES 41.5 % (15-50); MCH 31.4 pg (26.0-34.0); MCHC 32.8 g/dL (31.0-37.0); MCV 95.6 fL (80.0-100.0); MEAN PLATELET VOLUME 9.5 fL (7.4-10.4); MONOCYTES 1.4 % (2-11); NEUTROPHILS 56.1 % (40-80); PLATELET COUNT 152 10x3/uL (130-400); RDW 14.5 % (11.5-14.5); WBC 2.1 10x3/uL (4.8-10.8)
[2016-08-10 07:27] LABS: CALC OSMOLALITY 283 mosm/kg (275-300); CALCIUM 9.2 mg/dL (8.5-10.1); CARBON DIOXIDE 28.9 mmol/L (21.0-32.0); CHLORIDE - SERUM 101 mmol/L (98-107); GLUCOSE 114 mg/dL (74-106); SODIUM 138 mmol/L (136-145); THYROID STIMULATING HORMONE 0.37 uIU/mL (0.36-3.74); UREA NITROGEN 32 mg/dL (7-18); eGFR NON AFRICAN AMERICAN 76 mL/min (90-120)
--- NOTE | 2016-08-10 09:26 | NUR ---
RESTING QUIETLY IN BED. IT TAKES PENIS OUT OF BRIEF AND ENDS UP VOIDING ALL OVER HIMSELF AND BED. HE WAS CLEANED UP THIS MORNING AND TRANSFERED TO W/C WITH MOD ASST. HE FOLLOWS SIMPLE SLOW COMMANDS BUT NOT ALL THE TIME. DTR HELPED HIM WITH BREAKFAST. MOD TO MAX ASST TO TRANSFER BACK TO BED.
[2016-08-10 10:15] VITALS: BP 135/69
--- NOTE | 2016-08-10 14:49 | NUR ---
FAMILY HAS BEEN VISITING AND HELPING PT WITH ADL'S. HE REMAINS CONFUSED AND DROWSY. INCONT OF URINE.
--- NOTE | 2016-08-10 19:35 | NUR ---
PT RECEIVED IN BED WITH EYES OPEN WITH FAMILY AT BEDSIDE. NO CONCERNS NOTED. FAMILY LEFT SHORTLY AFTER LEAVING ROOM. WILL CONTINUE TO OBSERVE. CALL LIGHT IN REACH.
[2016-08-10 20:57] VITALS: BP 127/64
--- NOTE | 2016-08-11 01:14 | NUR ---
PT IN BED WITH EYES OPEN. PAD WAS WET WITH BRIEF SLIGHTLY WET. PT PULLS PENIS OUT OF BRIEF AND URINATES LEAVING BRIEF DRY. PT DOES NOT CALL FOR ASSISTANCE. ASSESS PT FREQUENTLY AND PROVIDE PERICARE NEEDED. WILL CONTINUE TO OBSERVE. CALL LIGHT IN REACH.
--- NOTE | 2016-08-11 06:27 | NUR ---
PT IN BED WITH EYES CLOSED AND CHEST RISING. NO SIGN/SYMPTOMS OF DISTRESS NOTED. EASILY AROUSED TO VERBAL STIMULI. AM MEDICATIONS GIVEN PER MAR WITHOUT DIFFICULTY. CALL LIGHT IN REACH.
[2016-08-11 07:00] VITALS: BP 136/66
--- NOTE | 2016-08-11 08:00 | NUR ---
SHIFT ASSMT COMPLETED.PLEASANTLY CONFUSED;SOME POSSIBLE RECEPTIVE AND EXPRESSIVE APHASIA;SOMETIMES IS ABLE TO FOLLOW SHORT COMMANDS BUT NOT CONSISTENTLY.MEAL SET-UP PROVIDED AND ASSISTED WITH BREAKFAST.
--- NOTE | 2016-08-11 10:00 | NUR ---
WILL POCKET PILLS AND FOOD.1 FINGER SWEEP TO GUMS PERFORMED AND PILLS REMOVED WHAT DID NOT DISSOLVE;REMAINING CRUSHED AND GIVEN IN APPLESAUCE.REMAINS UP IN WC.
--- NOTE | 2016-08-11 12:00 | NUR ---
MEAL GIVEN/OT.
--- NOTE | 2016-08-11 13:00 | NUR ---
REPORTED PET OT THAT AGUSTO MEAL W/O POCKETING AND NO DIFFICULITY IN SWALLOWING.
--- NOTE | 2016-08-11 16:00 | NUR ---
RESTING QUIETLY.ON ALARM.CL IN REACH.
--- NOTE | 2016-08-11 19:53 | NUR ---
PT RECEIVED SITTING ON SIDE OF BED WITH FAMILY ON EACH SIDE. PT ATTEMPTING TO US URINAL WITH NO OUTPUT REPORTED. NO CONCERNS NOTED. FAMILY HAS NOW LEFT FACILITY. WILL CONTINUE TO OBSERVE. CALL LIGHT IN REACH.
--- NOTE | 2016-08-11 22:35 | NUR ---
PT IN BED WITH EYES CLOSED AND CHEST RISING. NO SIGN/SYMPTOMS OF DISTRESS NOTED. CALL LIGHT IN REACH. WILL CONTINUE TO OBSERVE.
[2016-08-11 22:59] VITALS: BP 113/69
--- NOTE | 2016-08-12 01:38 | NUR ---
PT IN BED WITH EYES CLOSED AND CHEST RISING. BM NOTED AND BED BATH GIVEN WITH LINENS CHANGED. PT MAX ASSIST. NO CONCERNS NOTED. BED IN LOW POSITION. CALL LIGHT IN REACH.
--- NOTE | 2016-08-12 05:53 | NUR ---
PT IN BED WITH EYES CLOSED AND CHEST RISING. AROUSED TO VERBAL STIMULI. RECEIVED AM MEDICATIONS PER MAR WITHOUT DIFFICULTY. NO INCONTINENCE NOTED AT THIS TIME. CALL LIGHT IN REACH.
[2016-08-12 07:00] VITALS: BP 130/63
--- NOTE | 2016-08-12 08:00 | NUR ---
SHIFT ASSMT COMPLETED.BREAKFAST GIVEN.OOB FOR MEAL SET-UP.ASSISTED AT TIMES.NO DIFF NOTED.
--- NOTE | 2016-08-12 12:00 | NUR ---
ASSISTED OOB FOR LUNCH;MEAL SET-UP PROVIDED.FAMILY ASSISTING WITH CARE.
--- NOTE | 2016-08-12 16:00 | NUR ---
VISITING WITH SON.SITTING UP IN WC.CL IN REACH.
--- NOTE | 2016-08-12 20:14 | NUR ---
PT RECEIVED IN BED WITH EYES CLOSED AND CHEST RISING. AROUSES TO VERBAL STIMULI. NO SIGN/SYMPTOMS OF DISTRESS NOTED. CALL LIGHT IN REACH. WILL CONTINUE TO OBSERVE.
[2016-08-12 23:59] VITALS: BP 140/73
--- NOTE | 2016-08-13 05:00 | NUR ---
PT IN BED WITH EYES CLOSED AND CHEST RISING. NO CONCERNS NOTED AT THIS TIME. CALL LIGHT IN REACH.
[2016-08-13 07:06] LABS: HEMATOCRIT 34.7 % (42.0-54.0); HEMOGLOBIN 11.2 g/dL (13.5-17.5); MCH 31.4 pg (26.0-34.0); MCHC 32.3 g/dL (31.0-37.0); MCV 97.2 fL (80.0-100.0); MEAN PLATELET VOLUME 9.3 fL (7.4-10.4); PLATELET COUNT 177 10x3/uL (130-400); RBC 3.57 10x6/uL (4.20-6.10); RDW 14.5 % (11.5-14.5); WBC 2.6 10x3/uL (4.8-10.8)
[2016-08-13 07:30] LABS: ANION GAP 11.8 mmol/L (8-16); BASOPHILS 1 % (0-2); CALCIUM 9.1 mg/dL (8.5-10.1); CARBON DIOXIDE 31.8 mmol/L (21.0-32.0); CREATININE - SERUM 1.1 mg/dL (0.6-1.3); LYMPHOCYTES 24 % (15-50); MONOCYTES 1 % (2-11); NEUTROPHILS 72 % (40-80); PLATELET ESTIMATE NORMAL; POTASSIUM - SERUM 4.6 mmol/L (3.5-5.1)
[2016-08-13 08:13] VITALS: BP 141/77
--- NOTE | 2016-08-13 08:34 | RHP ---
PATIENT: GABI BRYSON JR MEDICAL RECORD: [id number] ACCOUNT: [id number] LOCATION:[id number] : 35 ADMISSION DATE: 08/07/16 REHABILITATION HISTORY AND PHYSICAL EXAMINATION POST ADMISSION PHYSICIAN EXAMINATION Post-admission Physical Examination and History and Physical DATE OF ADMISSION: 08/07/2016 ADMITTING DIAGNOSES: Small left frontal lobe infarct and acute mental status alteration. HISTORY OF PRESENT ILLNESS: The patient is an 81-year-old gentleman, who recently actually had his here in rehab, who presents secondary to small left frontal lobe infarct. He was brought to the ED by his daughter with acute mental status changes, frequent falls and severe weakness. He has had a 3-4 weeks ____ health including loss of appetite, weight loss, fatigue, weakness and he has had some incontinence issues with bowel and bladder. His was hospitalized when this all began and he began to have a declined. He assist with his care. He was independent driving up to a couple of weeks ago. He has been seen per neurology and he has had significant cerebral dysfunction combine with global cognitive dysfunction. Supervising Deputy was consult for workup. He had blood marrow biopsy for neutropenia. He is currently min to max assist for ADLs and mobility. The patient's family would like to return him on home on his prior level of functioning if possible, but secondary to his recent decline in his health and his ability to assist with his , he definitely needs inpatient rehab and if he has going to have any chance to return. COMORBIDITIES: In this patient include a small area of left frontal lobe infarction, degenerative changes at multiple levels with his spinal canal, cerebellar dysfunction, global cognitive dysfunction, pancytopenia, anemia, leukopenia, thrombocytopenia, confusion, history of ETOH use, hyponatremia, frequent falls, chronic tremor, malnutrition, generalized weakness and dementia. PAST MEDICAL HISTORY: Significant for BPH, weakness, vertigo, constipation and some dementia. PAST SURGICAL HISTORY: Includes cataract surgery. ALLERGIES: No known drug allergies. CURRENT MEDICATIONS: Include Flomax 0.4 mg daily, Protonix 40 mg b.i.d., multivitamin daily. He is on FiberCon 1250 mg daily. He is on aspirin 325 mg daily, Mysoline 50 mg b.i.d. He is on saline ____ at this time if needed. He is on polyethylene glycol 17 grams in 8 ounces of water daily, Remeron 7.5 mg q.h.s. He is on DuoNeb updrafts as needed. He is on hydrocortisone cream to apply topically t.i.d. p.r.n., and MiraLax 17 grams in 8 ounces of water daily. HABITS: No current alcohol or tobacco use. FAMILY HISTORY: Noncontributory. SOCIAL HISTORY: As above. The patient wants to return home with his , she has got pretty severe end-stage COPD. HISTORY AND PHYSICAL [id number] GABI BRYSON JR REVIEW OF SYSTEMS: GENERAL: Does complain of weakness. HEENT: Denies cold, cough, or congestion. CARDIOVASCULAR: Denies any chest pain. PHYSICAL EXAMINATION: VITAL SIGNS: Stable, afebrile. GENERAL: An elderly gentleman in no acute distress, alert upon exam. HEENT: Normocephalic, atraumatic. Mucosa moist. NECK: Supple. No lymphadenopathy. LUNGS: Clear at this time. HEART: Regular rate and rhythm. ABDOMEN: Benign. EXTREMITIES: No clubbing, cyanosis or edema. NEUROLOGIC: He is slow to mentate, has to be redirected. LABORATORY DATA: On admit, blood count, his white count is 2.0. His H&H are 11.5 and 34.8. His platelet count was noted to be 132. His sodium is 136, potassium 4.4, BUN and creatinine of 28 and 1.0 and blood sugar was noted to be 83. ASSESSMENT: This is an 81-year-old gentleman admitted to the rehab with a working diagnosis of small left frontal lobe infarct along with noted long-term history of possible dementia. The patient has potential to make improvement. We instituted the following multidisciplinary therapies including to, but not limited to physical, occupational, respiratory, speech, nutritional services, prosthetics and orthotics. Given his complex condition and risk for more complications, rehabilitation services cannot be provided at a lower level of care such as a penitentiary facility. PLAN: 1. Admit to [facility] rehab for intensive inpatient therapy to include the following disciplines: A. Physical therapy to improve gait, all transfer skills and bed mobility to a modified independent level. B. Occupational therapy to improve activities of daily living to a modified independent level. C. Case management to assist with discharge planning and placement options. D. Nutrition to assist with nutritional needs. E. Rehabilitation nursing to assist in monitoring the patient's underlying medical conditions and to assist with any type of bowel or bladder management. 2. The patient's current medications and medical care will be continued. 3. The patient will be placed on standard fall precautions. 4. The patient's estimated length of stay is approximately 7-10 days. 5. Discuss this patient during care team staff meeting this week. TRANSINT:[id number] Voice Confirmation ID: [id number] DOCUMENT ID: [id number] HISTORY AND PHYSICAL [id number] GABI BRYSON JR, SCOTT MD at 0834 CC: [id number] DICTATION DATE: 08/08/16 0758 STAFF DEVELOPMENT COORDINATOR RN: 08/08/16 1011 ADM IN [place] [address] [place] [address]
--- NOTE | 2016-08-13 09:12 | NUR ---
patient discharging from rehab and being admitted to acute floor for treatment of Lymphoma.
--- NOTE | 2016-08-13 09:33 | NUR ---
SITTING UP IN W/C IN THERAPY GYM. APPEARS TO BE SLEEPING. WAS VERY DROWSY THIS AM AND HAD TO BE FED BREAKFAST. HE COULD NOT FIGURE OUT HOW TO FEED HIMSELF. VERY CONFUSED THIS AM.
--- NOTE | 2016-08-13 12:41 | NUR ---
SITTING UP IN W/C IN ROOM EATING LUNCH. SON IN WITH PT AT PRESENT. NURSE SET WITH PT FOR 30 MINUTES WHILE HE ATE. APPETITE IS FAIR. HE IS ABLE TO FEED HIMSELF AND COMPLETE SWALLOW. STILL CONFUSED. TRIED TO EAT OUT OF BOWL WITH NO SPOON.
--- NOTE | 2016-08-13 17:30 | NUR ---
STILL WAITING ON ROOM TO OPEN UP ON MED SURG FOR PT TO TRANSFER. FAMILY IS AWARE OF DELAY. HE IS RESTING QUIETLY IN BED. NEEDS ASST WITH ALL TASKS. REMAINS CONFUSED.
--- NOTE | 2016-08-13 19:46 | NUR ---
PT DISCHARGED FROM UNIT AND TRANSFERED TO [facility]UR[facility] FOR TREATMENT OF LYMPHOMA UNDER CARE OF DR. RENEE. PT LEFT UNIT WITH STAFF AT 1945. TRANSFER PAPERS SENT WITH STAFF. PT FAMILY WITH PT. NO SIGNS/SYMPTOMS OF DISTRESS OR CONCERNS NOTED PRIOR TO TRANSFER. REPORT GIVEN TO RECEIVING NURSE.
== END 2016-08-13 19:53 | disposition short-term general hospital (02) | DRG 57 ==
LOC: D.REHAB 13:31
PROVIDERS: ADMIT Emergency Medicine
DX: I69.91 Cognitive deficits following unspecified cerebrovascular disease (principal); E46 Unspecified protein-calorie malnutrition; D61.818 Other pancytopenia; E87.1 Hypo-osmolality and hyponatremia; C85.90 Non-Hodgkin lymphoma, unspecified, unspecified site; R53.1 Weakness; Z91.81 History of falling; D64.9 Anemia, unspecified; D72.819 Decreased white blood cell count, unspecified; R25.1 Tremor, unspecified; F03.90 Unspecified dementia, unspecified severity, without behavioral disturbance, psychotic disturbance, mood disturbance, and anxiety

== ENCOUNTER 2016-08-13 19:50 | Inpatient (IN) | payer MEDICARE, OTHER ==
[~2016-08-13] VITALS: Ht 177.8 cm; Wt 59.4 kg
[2016-08-13 20:26] VITALS: BP 174/51
--- NOTE | 2016-08-13 21:00 | NUR ---
PATIENT RECEIVED TO ROOM FROM REHAB VIA WHEELCHAIR WITH FAMILY AND HOSPITAL STAFF. AWAKE AND ALERT BUT ONLY ORIENTED TO SELF. RR EVEN AND UNLABORED. 0 S/S OF DISTRESS. DENIES PAIN. NOTIFIED DR. DEL CID OF PATIENT'S ARRIVAL AND RECEIVED TELEPHONE ORDERS. SITED IV TO LEFT UPPER ARM WITH 20 GAUGE. PUT SCD'S ON PATIENT PER ORDER. B/A ON. SRX3. DOOR OPEN.
[2016-08-14] VITALS (8 sets, daily range): BP systolic 122–174; BP diastolic 49–72; Ht 177.8 cm; Wt 59.4 kg
--- NOTE | 2016-08-14 04:00 | NUR ---
PATIENT SLEEPING WITH NO DISTRESS NOTED.
[2016-08-14 05:56] LABS: BASOPHILS 0 % (0-2); EOSINOPHILS 0.8 % (0-7); HEMOGLOBIN 11.1 g/dL (13.5-17.5); IMMATURE GRANULOCYTES 0.4 % (0-5); MCH 31.6 pg (26.0-34.0); MCHC 32.6 g/dL (31.0-37.0); MCV 96.9 fL (80.0-100.0); MEAN PLATELET VOLUME 9.4 fL (7.4-10.4); NEUTROPHILS 56.8 % (40-80); PLATELET COUNT 200 10x3/uL (130-400); RBC 3.51 10x6/uL (4.20-6.10); RDW 14.7 % (11.5-14.5); WBC 2.6 10x3/uL (4.8-10.8)
[2016-08-14 06:23] LABS: ALBUMIN 3.3 g/dL (3.4-5.0); BILIRUBIN - TOTAL 0.9 mg/dL (0.2-1.3); CALCIUM 9.1 mg/dL (8.5-10.1); CARBON DIOXIDE 29.2 mmol/L (21.0-32.0); CREATININE - SERUM 1.2 mg/dL (0.6-1.3); POTASSIUM - SERUM 4.2 mmol/L (3.5-5.1); PROTEIN - SERUM 6.8 g/dL (6.4-8.2); URIC ACID 5.4 mg/dL (2.6-7.2)
--- NOTE | 2016-08-14 07:20 | NUR ---
MALOU WITH CT IN PT'S ROOM TRYING TO GET PATIENT TO DRINK CONTRAST. DENIES NEEDS AT THIS TIME. CALL LIGHT IN REACH, WILL CONTINUE WITH PLAN OF CARE.
--- NOTE | 2016-08-14 08:30 | NUR ---
SLEEPING, AROUSED TO VOICE, DENIES NEEDS, CALL LIGHT IN REACH, BED LOWEST POSITION, WILL CONTINUE TO MONITOR
--- NOTE | 2016-08-14 19:00 | NUR ---
PATIENT SLEEPING ON LEFT SIDE. HOB 10 DEGREES. RR EVEN AND UNLABORED. 0 S/S OF DISTRESS. IV TO LEFT UPPER ARM PATENT WITH NO REDNESS OR SWELLING. SCD'S IN ROOM BUT OFF. B/A ON. SRX3. BED LOW. DOOR OPEN.
--- NOTE | 2016-08-14 22:50 | NUR ---
MEDS GIVEN PER MAR, AGUSTO WELL, SAFETY MEASURES IN PLACE, CL IN REACH
--- NOTE | 2016-08-14 23:00 | NUR ---
PATIENT AWAKE AND ALERT. NIGHTTIME MEDS GIVEN. LINENS AND GOWN CHANGED DUE TO INCONTINENT EPISODE OF BLADDER. DENIES PAIN OR NEEDS AT THIS TIME.
[2016-08-15 04:00] VITALS: BP 133/58
--- NOTE | 2016-08-15 04:41 | NUR ---
PATIENT SLEEPING SUPINE IN BED WITH NO DISTRESS NOTED.
[2016-08-15 05:57] LABS: BASOPHILS 0.5 % (0-2); EOSINOPHILS 0.9 % (0-7); HEMATOCRIT 31.5 % (42.0-54.0); HEMOGLOBIN 10.3 g/dL (13.5-17.5); IMMATURE GRANULOCYTES 0.5 % (0-5); LYMPHOCYTES 40.9 % (15-50); MCH 31.5 pg (26.0-34.0); MCHC 32.7 g/dL (31.0-37.0); MCV 96.3 fL (80.0-100.0); MEAN PLATELET VOLUME 9.4 fL (7.4-10.4); MONOCYTES 3.2 % (2-11); PLATELET COUNT 187 10x3/uL (130-400); RBC 3.27 10x6/uL (4.20-6.10); RDW 14.5 % (11.5-14.5); WBC 2.2 10x3/uL (4.8-10.8)
[2016-08-15 06:17] LABS: ALBUMIN 3.3 g/dL (3.4-5.0); ALKALINE PHOSPHATASE 121 U/L (46-116); ALT (SGPT) 97 U/L (10-68); BILIRUBIN - TOTAL 0.95 mg/dL (0.2-1.3); CALC OSMOLALITY 287 mosm/kg (275-300); CALCIUM 8.7 mg/dL (8.5-10.1); CARBON DIOXIDE 26.3 mmol/L (21.0-32.0); CHLORIDE - SERUM 107 mmol/L (98-107); GLUCOSE 88 mg/dL (74-106); POTASSIUM - SERUM 4.1 mmol/L (3.5-5.1); PROTEIN - SERUM 6.5 g/dL (6.4-8.2); SODIUM 142 mmol/L (136-145); UREA NITROGEN 28 mg/dL (7-18); eGFR NON AFRICAN AMERICAN 76 mL/min (90-120)
--- NOTE | 2016-08-15 07:36 | NUR ---
RESTING, EASILY AROUSED, DENIES NEEDS, CALL LIGHT IN REACH, BED ALARM ON, BED LOWEST POSITION, WILL CONTINUE TO MONITOR
[2016-08-15 08:01] VITALS: BP 167/67
[2016-08-15 09:17] LABS: HEPATITIS C ANTIBODY <0.1 (0.0-0.9)
[2016-08-15 10:18] LABS: IMMUNOGLOBULIN A 226 mg/dL (61-437); IMMUNOGLOBULIN G 654 mg/dL (700-1600); IMMUNOGLOBULIN M 28 mg/dL (15-143)
--- NOTE | 2016-08-15 11:14 | NUR ---
Patient Name: GABI BRYSON Admission Status: Elective Accout number: [id number] Admission Date: 08-13-2016 : 1935 Admission Diagnosis: Attending: CATRACHITA Current LOS: 2 Anticipated DC Date: 08-16-2016 Planned Disposition: Inpatient Rehab Primary Insurance: MEDICARE A & B Discharge Planning Comments: CM MET WITH PATIENT REGARDING D/C NEEDS AND PLANS. PATIENTS SON AND AT BEDSIDE. PATIENT WAS ADMITTED FROM REHAB AND WILL RETURN THERE AT DISCHARGE. PATIENTS SON STATED THERE ARE ONLY 2 STEPS TO ENTER PATIENTS HOME AND NO STAIRS INSIDE. PATIENT WAS INDEPENDENT WITH HIS CARE BEFORE HIS LAST VISIT PER SON. PATIENT HAS A WALKER AT HOME AND HIS HELPS HIM IF NEEDED. PATIENTS PCP IS DR. TELLES AND PHARMACY IS [facility] [address]. CM WILL CONTINUE TO FOLLOW PATIENT WITH D/C NEEDS AND PLANS. PCP DR. TELLES PHARMACY IS [facility] [address] - [phone] BEN COREY (DAUGHTER) [phone] Hogshead Mat Assembler: Blank Santillan Is the patient Alert and Oriented? Yes 0 * How many steps to enter\exit or inside your home? 2 W/O RAIL 0 * PCP DR. TELLES 0 * Pharmacy [facility] [address] 0 * Preadmission Environment Acute Inpatient Rehab 0 * Facility Name [facility] 0 * ADLs Independent 0 * Equipment Walker 0 * List name and contact numbers for known caregivers / representatives who currently or will assist patient after discharge: BEN (DAUGHTER) [phone] 0 * Community resources currently utilized None 0 * Additional services required to return to the preadmission environment? Yes 0 * Can the patient safely return to the preadmission environment? Yes 0 * Has this patient been hospitalized within the prior 30 days at any hospital? No 0 Grand Total: 0
[2016-08-15 11:41] VITALS: BP 142/64
--- NOTE | 2016-08-15 13:40 | NUR ---
Recieved a call from Aishwarya Carlos RN MS re this patient returning to rehab. Spoke to the PT and OT therapist about his previous stay. He was not making any progress and they were only able to perform ROM with him. He is to low level to participate in 3 hours of therapy daily 5 days a week. Aishwarya has been notified. Cele Thornton RN Clinical Liaison, Rehab
--- NOTE | 2016-08-15 14:14 | NUR ---
CM REC. CALL FROM [facility] REHAB STATING PATIENT WAS NOT COMING BACK DOWN TO REHAB BECAUSE HE WAS NOT ADVANCING WELL AND RECOMMENDED SKILLED OR HOME W/HOME HEALTH. CM CALLED DAUGHTER AND SHE CALLED HER BROTHER (JOSEPH) TO CALL CM. JOSEPH AND HIS MOTHER (CRISTIN ZAYAS) CALLED AND STATED THEY WOULD LIKE HIM TO GO TO SKILLED AND CHOSE [facility]. CM SENDING REFERRAL TO [facility]. DR. DEL CID AWARE AND IS AGREED TO PLAN.
--- NOTE | 2016-08-15 14:28 | NUR ---
PT IN FOR LYMPHOMA TREATMENTS OF IV FLUID AND ANTIBIOTICS FOR THIS VISIT IV TO LEFT UPPER ARM PATENT AND INTACT PT DENIES NEEDS AT THIS TIME SRX2 BED AT LOWEST SETTING CALL LIGHT WITHIN REACH WILL CONTINUE TO MONITOR
--- NOTE | 2016-08-15 19:55 | NUR ---
PATIENT RESTING IN BED AND DENIES NEEDS AT THIS TIME. BED IN LOWEST POSITION, CALL LIGHT WITHIN REACH, AND BED ALARM ON. ENCOURAGED PATIENT TO CALL IF HE HAS FURTHER NEEDS.
[2016-08-15 20:00] VITALS: BP 122/61
[2016-08-16] VITALS: BP 130/60
--- NOTE | 2016-08-16 05:15 | NUR ---
PATIENT RESTING IN BED CLEAN AND DRY. BED IN LOWEST POSITION, CALL LIGHT WITHIN REACH, AND BED ALARM ON.
[2016-08-16 06:18] LABS: BASOPHILS 0.3 % (0-2); EOSINOPHILS 0.3 % (0-7); HEMATOCRIT 28.9 % (42.0-54.0); HEMOGLOBIN 9.4 g/dL (13.5-17.5); IMMATURE GRANULOCYTES 1.2 % (0-5); LYMPHOCYTES 32.6 % (15-50); MCH 31.1 pg (26.0-34.0); MCHC 32.5 g/dL (31.0-37.0); MCV 95.7 fL (80.0-100.0); MONOCYTES 1.2 % (2-11); NEUTROPHILS 64.4 % (40-80); PLATELET COUNT 153 10x3/uL (130-400); RBC 3.02 10x6/uL (4.20-6.10); RDW 14.3 % (11.5-14.5); WBC 3.5 10x3/uL (4.8-10.8)
[2016-08-16 06:35] LABS: ALKALINE PHOSPHATASE 107 U/L (46-116); ALT (SGPT) 97 U/L (10-68); BILIRUBIN - TOTAL 0.73 mg/dL (0.2-1.3); CALC OSMOLALITY 287 mosm/kg (275-300); CALCIUM 8.5 mg/dL (8.5-10.1); CARBON DIOXIDE 26.4 mmol/L (21.0-32.0); CHLORIDE - SERUM 108 mmol/L (98-107); CREATININE - SERUM 0.9 mg/dL (0.6-1.3); GLUCOSE 88 mg/dL (74-106); POTASSIUM - SERUM 3.6 mmol/L (3.5-5.1); SODIUM 143 mmol/L (136-145); UREA NITROGEN 24 mg/dL (7-18); eGFR NON AFRICAN AMERICAN 86 mL/min (90-120)
--- NOTE | 2016-08-16 07:00 | NUR ---
PT WAS RECEIVED AT THE BEGINNING OF THIS SHIFT IN BED AWAKE AND ORIENTED TO PERSON ONLY. LEFT UPPER ARM WITH IV THAT IS PATENT WITH NS RUNNING AT 75ML'S/HR. PT. IS A TOTAL CARE. BED ALARM DEVICE ON. NO SIGNS OF ANY DISCOMFORT OR DISTRESS. WILL BE MONITORING HIM.
[2016-08-16 08:21] VITALS: BP 128/93
[2016-08-16] MEDS ORDERED: PRAVACHOL20 MG PO (11:18)
[2016-08-16 11:35] VITALS: BP 124/62
--- NOTE | 2016-08-16 12:48 | NUR ---
PT PULLED OUT HIS IV AND THRASHED AROUND IN HIS BED CONTINUOUS EARLIER IN THE DAY. NEW ORDER RECEIVED FOR HALDOL IM 2MG TO BE GIVEN AND WAS GIVEN AT 10:15AM. PT'S SON IS HERE VISITING WITH PT. PT HAD GONE TO SLEEP AFTER HAVING THE IM BUT IS NOW AWAKE. BED ALARM DEVICE ON BED IS ON. PT. CONTINUES TO BE CONFUSED. WILL CONTINUE TO MONITOR HIM AND ASSIST PRN WITH ADL'S. NO SIGNS OF ANY DISCOMFORT OR DISTRESS. PT. HAS SETTLED DOWN.
--- NOTE | 2016-08-16 14:06 | NUR ---
Nutrition Follow Up: Chart reviewed. Pt very confused at this time. Interview deferred. Pt is eating 19% meal avg on a regular diet. No BM since admit. Meds noted including MV. Labs reviewed. Rec continue current diet. Rec consider an appetite stimulant. Will send Ensure with meals. RD following.
[2016-08-16 15:26] LABS: IMMUNOGLOBULIN D <0.12 mg/dL (<14.11)
--- NOTE | 2016-08-16 15:43 | NUR ---
CM REASSESSMENT NOTE: PATIENTS FAMILY CHOSE [facility] AND REFERRAL HAS BEEN SENT TO [facility] AT FACILITY. [facility] STATED IT WOULD PROBABLY BE TOMORROW BEFORE PATIENT COULD COME IF ACCEPTED.
--- NOTE | 2016-08-16 18:16 | NUR ---
DR. QUEZADA ROUNDED AND NEW ORDER RECEIVED FOR GEODON 5MG IM Q 6 HOURS PRN FOR X-TREME AGITATION. PT'S FAMILY IS IN WITH HIM AND ASSISTING HIM TO HIS SUPPER. WILL CONTINUE TO MONITOR.
[2016-08-16 20:00] VITALS: BP 145/64
--- NOTE | 2016-08-16 23:55 | NUR ---
1945}INCONTINENT OF URINE. PARTIAL.BATH COMPLETE LINEN CHGE. BUTTOCKS RED NO SKINBREAKAGE.BUTT BALM APPLIED BED ARMED WILL CONTINUE TO MONITOR FOR ANY CHGES. AND FOLLOW CURRENT PLAN OF CARE
[2016-08-17] VITALS: BP 140/73
--- NOTE | 2016-08-17 02:51 | NUR ---
PT IS ASLEEP WITH EASY RESPIRATIONS AND NO DISTRESS NOTED. ROOM AIR, BED IS LOW, RAILS UP X'S 2 WITH THE CALL LIGHT AT HAND.
[2016-08-17 04:00] VITALS: BP 119/78; BP 159/76
[2016-08-17 07:08] LABS: BASOPHILS 0 % (0-2); EOSINOPHILS 0.4 % (0-7); HEMATOCRIT 32.2 % (42.0-54.0); HEMOGLOBIN 10.4 g/dL (13.5-17.5); IMMATURE GRANULOCYTES 2.1 % (0-5); LYMPHOCYTES 24.8 % (15-50); MCH 31.2 pg (26.0-34.0); MCHC 32.3 g/dL (31.0-37.0); MCV 96.7 fL (80.0-100.0); MEAN PLATELET VOLUME 9.1 fL (7.4-10.4); MONOCYTES 1.5 % (2-11); NEUTROPHILS 71.2 % (40-80); RBC 3.33 10x6/uL (4.20-6.10); RDW 14.6 % (11.5-14.5)
[2016-08-17 07:11] LABS: PLATELET COUNT 187 10x3/uL (130-400); WBC 4.7 10x3/uL (4.8-10.8)
[2016-08-17 07:29] LABS: ALBUMIN 3.4 g/dL (3.4-5.0); ALKALINE PHOSPHATASE 131 U/L (46-116); ALT (SGPT) 94 U/L (10-68); BILIRUBIN - TOTAL 0.74 mg/dL (0.2-1.3); CALC OSMOLALITY 276 mosm/kg (275-300); CALCIUM 8.8 mg/dL (8.5-10.1); CARBON DIOXIDE 29.5 mmol/L (21.0-32.0); CHLORIDE - SERUM 103 mmol/L (98-107); CREATININE - SERUM 0.9 mg/dL (0.6-1.3); GLUCOSE 92 mg/dL (74-106); POTASSIUM - SERUM 3.8 mmol/L (3.5-5.1); PROTEIN - SERUM 6.8 g/dL (6.4-8.2); SODIUM 137 mmol/L (136-145); UREA NITROGEN 20 mg/dL (7-18); eGFR NON AFRICAN AMERICAN 86 mL/min (90-120)
--- NOTE | 2016-08-17 07:45 | NUR ---
Alert and oriented to name, able to state name and date of . Calm and cooperative with assessment, incontinent of urine and small amount of stool, cleansed up and repositioned in bed.
[2016-08-17 10:09] VITALS: BP 185/49
[2016-08-17 11:47] VITALS: BP 172/50
--- NOTE | 2016-08-17 15:06 | NUR ---
CM REASSESSMENT NOTE: PATIENT IS DISCHARGING TO [facility] TODAY BY AMBULANCE TO A SKILLED BED. FAMILY AWARE
--- NOTE | 2016-08-17 15:10 | NUR ---
Walked in patient room to check on him, noted patient falling to floor in bathroom, able to move extremities, assisted up with assist times 2. No injuries assessed. Repositioned back in bed and assured bedalarm functioning correctly. Informed community living specialist Alecia, contacted licensed embalmer supervisor Archie attempted to contact patient family several times with unidentified voicemail, attempted number in computer and face sheet of a daughter which was not in service. Patient without any distress or complications assessed. Did not hit his head, landed on arms. Vital signs obtained.
--- NOTE | 2016-08-17 16:36 | NUR ---
Report called to Mirtha at [facility].
[2016-08-17 16:38] VITALS: BP 125/64
--- NOTE | 2016-08-17 16:50 | NUR ---
Patient discharged without incident via ambulance transportation
== END 2016-08-17 16:50 | DRG 840 ==
LOC: D.MS 19:50
PROVIDERS: Internal Medicine Hematology & Oncology; ADMIT Family Medicine
DX: C85.10 Unspecified B-cell lymphoma, unspecified site (principal); G93.40 Encephalopathy, unspecified; E46 Unspecified protein-calorie malnutrition; E87.1 Hypo-osmolality and hyponatremia; D61.818 Other pancytopenia; I69.314 Frontal lobe and executive function deficit following cerebral infarction; R53.1 Weakness; Z91.81 History of falling; F03.90 Unspecified dementia, unspecified severity, without behavioral disturbance, psychotic disturbance, mood disturbance, and anxiety

== ENCOUNTER 2016-08-18 19:39 | Inpatient (IN) | payer MEDICARE, OTHER ==
[~2016-08-18] VITALS: Ht 177.8 cm; Wt 68.0 kg
[~2016-08-18 19:39] MED LIST changes: +PRAVACHOL20 MG PO
[2016-08-18 20:10] LABS: BASOPHILS 0.3 % (0-2); EOSINOPHILS 0.3 % (0-7); HEMATOCRIT 33.5 % (42.0-54.0); IMMATURE GRANULOCYTES 0.6 % (0-5); LYMPHOCYTES 28.2 % (15-50); MCH 31.5 pg (26.0-34.0); MCHC 32.8 g/dL (31.0-37.0); MEAN PLATELET VOLUME 9.1 fL (7.4-10.4); MONOCYTES 2.5 % (2-11); NEUTROPHILS 68.1 % (40-80); PLATELET COUNT 200 10x3/uL (130-400); RBC 3.49 10x6/uL (4.20-6.10); RDW 14.9 % (11.5-14.5); WBC 3.6 10x3/uL (4.8-10.8)
[2016-08-18 20:27] LABS: ALBUMIN 3.5 g/dL (3.4-5.0); ANION GAP 11.9 mmol/L (8-16); BILIRUBIN - TOTAL 1.34 mg/dL (0.2-1.3); CALCIUM 9.1 mg/dL (8.5-10.1); CARBON DIOXIDE 29.4 mmol/L (21.0-32.0); CREATININE - SERUM 1.1 mg/dL (0.6-1.3); POTASSIUM - SERUM 4.3 mmol/L (3.5-5.1); PROTEIN - SERUM 7.1 g/dL (6.4-8.2)
[2016-08-18 20:29] LABS: APPEARANCE HAZY (CLEAR); BILIRUBIN NEGATIVE (NEGATIVE); COLOR DK YELLOW (YELLOW); GLUCOSE NEGATIVE (NEGATIVE); KETONE NEGATIVE (NEGATIVE); LEUKOCYTE ESTERASE TRACE (NEGATIVE); NITRITE NEGATIVE (NEGATIVE); PROTEIN NEGATIVE (NEGATIVE)
[2016-08-18 20:30] LABS: BACTERIA FEW /hpf (NONE SEEN); EPITHELIAL CELLS 0-5 /hpf (0-5); MUCUS <1+ /lpf (NONE SEEN); WHITE CELLS - URINE 0-5 /hpf (0-5)
[2016-08-19 00:42] VITALS: BP 165/78; BMI 21.5
[2016-08-19] MEDS ORDERED: METAMUCIL PACKE1 PKT PO (00:44)
[2016-08-19 04:00] VITALS: BP 149/75
[2016-08-19 09:17] VITALS: BP 174/84
--- NOTE | 2016-08-19 10:49 | NUR ---
SCHEDULED MEDICATIONS ADMINISTERED AT THIS TIME CRUSHED IN PUDDING. TAKEN WITHTOUT DIFFICULTY. DAUGHTER AT BEDSIDE. MARQUEZ PATENT AND DRAINING TO GRAVITY. IV SITE PATENT. ASSESSMENT PERFORMED PER FLOWSHEET. CALL LIGHT IN REACH AND FAMILY REMAINS AT BEDSIDE. WILL CONTINUE [facility] PLAN OF CARE.
[2016-08-19 11:53] VITALS: BP 162/78
--- NOTE | 2016-08-19 13:45 | NUR ---
SCHEDULED FLORAJEN ADMINISTERED AT THIS TIME IN PUDDING. TAKEN WITHOUT DIFFICULTY. PT DRINKING ENSURE WITHOUT DIFFICULTY. DAUGHTER REMAINS AT BEDSIDE. CALL LIGHT IN REACH, WILL CONTINUE WITH PLAN OF CARE.
[2016-08-19 15:33] VITALS: BP 142/76
[2016-08-19 20:00] VITALS: BP 147/53
--- NOTE | 2016-08-19 21:53 | NUR ---
PATIENT RESTING IN BED. ALERT. CONFUSED. NO SIGNS OF DISTRESS NOTED. RESPIRATIONS EVEN AND UNLABORED. NO NEEDS VOICED. SCHEDULED MED GIVEN. SHIFT ASSESSMENT COMPLETED. BED LOW. CALL LIGHT IN REACH.
[2016-08-20] VITALS: BP 129/45
--- NOTE | 2016-08-20 01:00 | NUR ---
RESTING WITH EYES CLOSED, RESP WITH EASE, NO DISTRESS NOTED, FALL PRECAUTIONS IN PLACE, CL IN REACH
[2016-08-20 04:00] VITALS: BP 171/47
--- NOTE | 2016-08-20 07:39 | NUR ---
PT ASLEEP ON BACK IN BED RESP EVEN AND NONLABORED IV TO LEFT FOREARM PATENT AND INTACT SRX2 CALL LIGHT WITHIN REACH BED AT LOWEST SETTING WILL CONTINUE TO MONITOR
[2016-08-20 08:22] VITALS: BP 154/69
[2016-08-20 09:45] LABS: BASOPHILS 0.4 % (0-2); EOSINOPHILS 0.8 % (0-7); HEMATOCRIT 28.4 % (42.0-54.0); HEMOGLOBIN 9.6 g/dL (13.5-17.5); IMMATURE GRANULOCYTES 0.8 % (0-5); LYMPHOCYTES 32.8 % (15-50); MCH 32.3 pg (26.0-34.0); MCHC 33.8 g/dL (31.0-37.0); MCV 95.6 fL (80.0-100.0); MEAN PLATELET VOLUME 9.2 fL (7.4-10.4); MONOCYTES 2.3 % (2-11); NEUTROPHILS 62.9 % (40-80); PLATELET COUNT 208 10x3/uL (130-400); RBC 2.97 10x6/uL (4.20-6.10); RDW 14.8 % (11.5-14.5)
[2016-08-20 09:52] LABS: WBC 2.6 10x3/uL (4.8-10.8)
[2016-08-20 09:58] LABS: ALBUMIN 2.8 g/dL (3.4-5.0); ALKALINE PHOSPHATASE 127 U/L (46-116); ALT (SGPT) 64 U/L (10-68); BILIRUBIN - TOTAL 0.61 mg/dL (0.2-1.3); CALC OSMOLALITY 277 mosm/kg (275-300); CALCIUM 7.7 mg/dL (8.5-10.1); CARBON DIOXIDE 26.3 mmol/L (21.0-32.0); CHLORIDE - SERUM 103 mmol/L (98-107); CREATININE - SERUM 0.9 mg/dL (0.6-1.3); GLUCOSE 144 mg/dL (74-106); PROTEIN - SERUM 5.5 g/dL (6.4-8.2); SODIUM 136 mmol/L (136-145); UREA NITROGEN 22 mg/dL (7-18); eGFR NON AFRICAN AMERICAN 86 mL/min (90-120)
[2016-08-20 11:50] VITALS: BP 146/42
[2016-08-20] MEDS ORDERED: Levaquin PO (14:59)
[2016-08-20] MEDS ORDERED: NYSTATIN ORAL SU5 ML PO (14:59)
[2016-08-20 15:46] VITALS: BP 122/55
[2016-08-20 15:58] VITALS: Ht 177.8 cm; Wt 68.0 kg
[2016-08-20 20:00] VITALS: BP 129/72
--- NOTE | 2016-08-20 21:00 | NUR ---
PATIENT RESTING IN BED. ALERT. CONFUSED. ONLY ANSWERS YES OR NO QUESTIONS. SCHEDULED MEDS GIVEN. SNACK GIVEN. SHIFT ASSESSMENT COMPLETED. NO NEEDS VOICED. BED LOW. CALL LIGHT IN REACH
--- NOTE | 2016-08-21 01:53 | NUR ---
PATIENT RESTING IN BED WITH EYES CLOSED. NO VISIBLE SIGNS OF DISTRESS. BED IN LOWEST POSITION AND CALL LIGHT WITHIN REACH.
[2016-08-21 04:00] VITALS: BP 166/70
[2016-08-21 06:21] LABS: BASOPHILS 0 % (0-2); EOSINOPHILS 0.4 % (0-7); HEMATOCRIT 27.2 % (42.0-54.0); IMMATURE GRANULOCYTES 0.4 % (0-5); LYMPHOCYTES 26.7 % (15-50); MCH 31.7 pg (26.0-34.0); MCHC 33.1 g/dL (31.0-37.0); MCV 95.8 fL (80.0-100.0); MEAN PLATELET VOLUME 9.1 fL (7.4-10.4); MONOCYTES 0.8 % (2-11); NEUTROPHILS 71.7 % (40-80); PLATELET COUNT 175 10x3/uL (130-400); RBC 2.84 10x6/uL (4.20-6.10); RDW 14.6 % (11.5-14.5); WBC 2.4 10x3/uL (4.8-10.8)
[2016-08-21 06:41] LABS: ALBUMIN 2.5 g/dL (3.4-5.0); ALKALINE PHOSPHATASE 97 U/L (46-116); CALC OSMOLALITY 272 mosm/kg (275-300); CALCIUM 7.9 mg/dL (8.5-10.1); CARBON DIOXIDE 25.3 mmol/L (21.0-32.0); CHLORIDE - SERUM 101 mmol/L (98-107); CREATININE - SERUM 0.7 mg/dL (0.6-1.3); GLUCOSE 129 mg/dL (74-106); POTASSIUM - SERUM 3.8 mmol/L (3.5-5.1); PROTEIN - SERUM 5.7 g/dL (6.4-8.2); SODIUM 134 mmol/L (136-145); UREA NITROGEN 20 mg/dL (7-18); eGFR NON AFRICAN AMERICAN > 90 mL/min (90-120)
[2016-08-21 06:42] LABS: ALT (SGPT) 43 U/L (10-68)
--- NOTE | 2016-08-21 08:02 | NUR ---
PT AOX1 FAMILY AT THE BEDSIDE RESP EVEN AND NONLABORED IV TO LEFT FOREARM PATENT AND INTACT SRX2 CALL LIGHT WITHIN REACH BED IN LOWEST SETTING WILL CONTINUE TO MONITOR
[2016-08-21 08:17] VITALS: BP 172/56
--- NOTE | 2016-08-21 10:12 | NUR ---
DR. STEVE SPOKE WITH CM THIS AM REGARDING D/C PLANS FOR PATIENT. DR. DEL CID SPOKE WITH PATIENTS CHILDREN THIS AM AT THE HOSPITAL AND THEY ARE CONSIDERING HOSPICE AND ARE GOING HOME TO SPEAK TO THEIR MOTHER REGARDING THIS. DR. DEL CID STATED HE WOULD NEED [facility] FOR HOSPICE - THEY DID NOT WANT TO TAKE HIM HOME. CM IS WAITING FOR FAMILY TO CALL WITH THEIR DECISION REGARDING HOSPICE AND CHOICE OF FACILITY.
[2016-08-21 12:08] VITALS: BP 106/67
[2016-08-21 16:28] VITALS: BP 122/55; BP 122/57
[2016-08-21 19:00] VITALS: BP 117/51
[2016-08-22 04:00] VITALS: BP 142/54
[2016-08-22 06:15] LABS: BASOPHILS 0.3 % (0-2); EOSINOPHILS 0.6 % (0-7); HEMATOCRIT 25.6 % (42.0-54.0); HEMOGLOBIN 8.5 g/dL (13.5-17.5); IMMATURE GRANULOCYTES 0.6 % (0-5); LYMPHOCYTES 22.4 % (15-50); MCH 31.3 pg (26.0-34.0); MCHC 33.2 g/dL (31.0-37.0); MCV 94.1 fL (80.0-100.0); MONOCYTES 2.2 % (2-11); NEUTROPHILS 73.9 % (40-80); PLATELET COUNT 168 10x3/uL (130-400); RBC 2.72 10x6/uL (4.20-6.10); RDW 14.3 % (11.5-14.5)
[2016-08-22 06:19] LABS: WBC 3.2 10x3/uL (4.8-10.8)
[2016-08-22 06:37] LABS: ALBUMIN 2.3 g/dL (3.4-5.0); ALKALINE PHOSPHATASE 112 U/L (46-116); ALT (SGPT) 45 U/L (10-68); BILIRUBIN - TOTAL 0.36 mg/dL (0.2-1.3); CALC OSMOLALITY 269 mosm/kg (275-300); CALCIUM 7.8 mg/dL (8.5-10.1); CARBON DIOXIDE 26.3 mmol/L (21.0-32.0); CHLORIDE - SERUM 101 mmol/L (98-107); CREATININE - SERUM 0.7 mg/dL (0.6-1.3); GLUCOSE 128 mg/dL (74-106); POTASSIUM - SERUM 4.1 mmol/L (3.5-5.1); PROTEIN - SERUM 5.4 g/dL (6.4-8.2); SODIUM 133 mmol/L (136-145); UREA NITROGEN 18 mg/dL (7-18); eGFR NON AFRICAN AMERICAN > 90 mL/min (90-120)
--- NOTE | 2016-08-22 08:16 | NUR ---
PT ASLEEP ON BACK IN BED [id number] RESP EVEN AND NONLABORED IV TO LEFT FOREARM PATENT AND INTACT. SRX2 BED AT LOWEST SETTING CALL LIGHT WITHIN REACH WILL CONTINUE TO MONITOR
[2016-08-22 08:25] VITALS: BP 152/68
--- NOTE | 2016-08-22 10:11 | NUR ---
CM REASSESSMENT NOTE: CM SPOKE TO DAUGHTER (MICHAEL) REGARDING HOSPICE. DAUGHTER STATED THEY REALLY HAVE NOT TALKED ABOUT IT AND THAT HER BROTHER (JOSEPH) WOULD BE HERE TODAY AND WILL TALK WITH CM. CM WILL CONTINUE TO FOLLOW PATIENT WITH D/C NEEDS AND PLANS.
[2016-08-22 10:59] VITALS: BP 142/45
[2016-08-22 16:01] VITALS: BP 138/68
--- NOTE | 2016-08-22 17:25 | NUR ---
CM REASSESSMENT NOTE: CM MET WITH FAMILY (BOTH DAUGHTERS, AND SON) REGARDING HOSPICE. INFORMATION WAS GIVEN TO FAMILY REGARDING THE HOSPICE HOME ON [address] WHICH WAS REQUESTED BY FAMILY. FAMILY IS MAKING AN APPOINTMENT TOMORROW FOR A TOUR OF THE HOME. FAMILY WILL THEN CONTACT CM REGARDING THEIR CHOICE (HOME VS HOSPICE HOME). CM WILL CONTINUE TO FOLLOW PATIENT WITH D/C NEEDS AND PLANS.
--- NOTE | 2016-08-22 17:38 | NUR ---
OT NOTE: PT COMPLETED SELF FEEDING WITH MAX A. PT COMPLETED BED POSITIONING WITH MAX A. PT COMPLETED BUE AAROM FOR INCREASED I WITH ADLS. THANK YOU, HALEIGH SURESH
--- NOTE | 2016-08-22 19:00 | NUR ---
BEDSIDE REPORT RECEIVED AND CARE OF PT ASSUMED. PT LYING IN SUPINE POSITION WITH EYES CLOSED AND EASY RESPIRATIONS. FAMILY MEMBERS ARE AT BEDSIDE. IV IN LEFT FA PATENT WITH NS INFUSING AT 100 ML / HR, AND TPN INFUSING AT 75 ML / HR. MARQUEZ CATHETER DRAINING TO GRAVITY WITH YELLOW URINE IN COLLECTION BAG. BED ALARMS IN USE AND SIDE RAILS UP X2 FOR SAFETY. WILL MONITOR CLOSLEY FOR NEEDS.
[2016-08-22 20:49] VITALS: BP 145/66
--- NOTE | 2016-08-22 21:27 | NUR ---
HS MEDICAIONS GIVEN CRUSHED AND MIXED WITH PUDDING. USED SWAB TO SWAB INSIDE OF MOUTH WITH NUSTATIN. WILL CONTINUE TO MONITOR FOR NEEDS.
[2016-08-23 01:01] VITALS: BP 154/66
--- NOTE | 2016-08-23 03:00 | NUR ---
TPN AND ALL TUBING CHANGED. PT RESTING QUIELTY AT THIS TIME. TURNED TO RIGHT SIDE.
[2016-08-23 04:00] VITALS: BP 159/63
[2016-08-23 05:27] LABS: BASOPHILS 0 % (0-2); EOSINOPHILS 0.5 % (0-7); HEMATOCRIT 25.2 % (42.0-54.0); HEMOGLOBIN 8.5 g/dL (13.5-17.5); IMMATURE GRANULOCYTES 0.3 % (0-5); LYMPHOCYTES 21.5 % (15-50); MCH 31.5 pg (26.0-34.0); MCHC 33.7 g/dL (31.0-37.0); MCV 93.3 fL (80.0-100.0); MEAN PLATELET VOLUME 9.2 fL (7.4-10.4); MONOCYTES 1.9 % (2-11); NEUTROPHILS 75.8 % (40-80); PLATELET COUNT 184 10x3/uL (130-400); RDW 14.5 % (11.5-14.5); WBC 3.8 10x3/uL (4.8-10.8)
[2016-08-23 06:10] LABS: ALBUMIN 2.3 g/dL (3.4-5.0); ALKALINE PHOSPHATASE 124 U/L (46-116); BILIRUBIN - TOTAL 0.44 mg/dL (0.2-1.3); CALC OSMOLALITY 263 mosm/kg (275-300); CALCIUM 8.1 mg/dL (8.5-10.1); CARBON DIOXIDE 24.3 mmol/L (21.0-32.0); CHLORIDE - SERUM 99 mmol/L (98-107); CREATININE - SERUM 0.8 mg/dL (0.6-1.3); GLUCOSE 114 mg/dL (74-106); POTASSIUM - SERUM 4.2 mmol/L (3.5-5.1); PROTEIN - SERUM 5.6 g/dL (6.4-8.2); SODIUM 130 mmol/L (136-145); UREA NITROGEN 17 mg/dL (7-18); eGFR NON AFRICAN AMERICAN > 90 mL/min (90-120)
[2016-08-23 06:23] LABS: ALT (SGPT) 64 U/L (10-68)
--- NOTE | 2016-08-23 07:30 | NUR ---
PT ASSESSMENT COMPLETE RESTING WELL WITH EYES CLOSED RESPS EVEN AND UNLABORED NO ACUTE DISTRESS NOTED BED ALARM AND BOX ALARM NOTED TO PT TO ALERT STAFF OF UNASSISTED TRANSFER. TELEMETRY SHOWS SINUS TACH RATE OF 105 WITH PACS NOTED.
[2016-08-23 08:12] VITALS: BP 157/79
--- NOTE | 2016-08-23 10:11 | NUR ---
CM REASSESSMENT NOTE: CM REC. CALL FROM SON (JOSEPH) REGARDING TIME HE WOULD BE AT HOSPITAL TODAY. SON STATED HE WOULD BE HERE AROUND 3-4 AND WOULD TALK WITH CM REGARDING HOSPICE CHOICE. CM WILL CONTINUE TO FOLLOW PATIENT WITH D/C NEEDS AND PLANS.
--- NOTE | 2016-08-23 10:59 | EC ---
PATIENT:GABI BRYSON JR DATE OF SERVICE: 08/18/16 SEX: M MEDICAL RECORD: [id number] DATE OF : 35 LOCATION:[id number] AGE OF PATIENT: 81 ADMISSION DATE: 08/18/16 REFERRING PHYSICIAN: INTERPRETING PHYSICIAN: SUMMER FRANCO M.D. ECHOCARDIOGRAM REPORT ECHO CHARGES 5 ECHO LIMITED 1 DOPPLER ECHO COLOR FLOW 2 DOPPLER ECHO PULSE CLINICAL DIAGNOSIS: BIFRONTAL INFARCTION ECHOCARDIOGRAPHIC MEASUREMENTS (adult normal given) AC root (d.<3.7cm) 0 LV Septum d (<1.2 cm> 0 Valve Excursion 0 LV Septum (systole) 0 Left Atria (s.<4.0cm> 0 LVPW d(<1.2cm) 0 RV (d.<2.3cm) 0 LVPW (sytole) 0 LV diastole(<5.6CM) 0 MV E-F(>70mm/sec) 0 LV systole 0 LVOT Diameter 0 MV exc.(>10mm) 0 Est.ejection fraction (50-75%) Pericardial Effusion N DOPPLER: LVIT 0 A 0 E 0 LA 0 RVSP 41.2 LVOT 0 AOP1/2T 0 Asc. Ao 0 RVOT 0 RA 0 PA 0 AV Gradient Peak 0 AV Mean 0 AV Area 0 MV Gradient Peak 0 MV Mean 0 MV Area 0 COMMENTS: LIMITED STUDY (2-D,COLOR & LIMITED DOPPLER) COMPLETE ECHO DONE ON 08/03/16 Stack Supervisor: Franki SHARMA Director Acute:2 Dr. Franco TAPE# PACS DATE OF SERVICE: 08/22/2016 REFERRING PHYSICIAN: Andres Pina MD. INDICATION: CVA. DESCRIPTION: This is a limited study. The full study was performed a few weeks ago. ECHOCARDIOGRAM REPORT [id number] GABI BRYSON JR Left ventricle has normal size and function. No wall motion abnormalities are noted. Estimated ejection fraction 55%. There is no evidence of any thrombus in the left ventricle. The mitral valve appears structurally normal. No regurgitation seen. The aortic valve is structurally normal. There is no regurgitation seen. Tricuspid valve is structurally normal with no regurgitation seen. There is no pericardial effusion noted. IMPRESSION: 1. Normal left ventricular size and function, ejection fraction 55%. There is no evidence of any mass or thrombus in the left ventricle apex. 2. There is no evidence of any mass or lesion on the semilunar valves. TRANSINT:[id number] Voice Confirmation ID: [id number] DOCUMENT ID: [id number] SUMMER FRANCO M.D. at 1059 CC: [id number] DICTATION DATE: 08/23/16908 FURNACE COOLER: 08/23/16 0958 ADM IN [facility] [address] [id number]
[2016-08-23 11:17] VITALS: BP 124/48
--- NOTE | 2016-08-23 14:05 | NUR ---
Nutrition Follow Up: Chart reviewed. Noted family to discuss hospice for pt. Pt is currently receiving PPN of Clinimix D10 AA 4.25% @ 75 ml/hr providing 918 kcal and 77 g protein. Pt is eating 8% meal avg on a regular puree diet with honey thick liquids. Wt stable. +BM 08/22/16. Labs reviewed. Meds noted including NS @ 100 ml/hr, Remeron, MV. Rec continue current diet as tolerated. RD will continue to follow.
[2016-08-23 15:25] VITALS: BP 118/58
--- NOTE | 2016-08-23 18:51 | NUR ---
PT BEING FED PER FAMILY AT THIS TIME NO ACUTE DISTRESS NOTED
[2016-08-23 20:00] VITALS: BP 101/46
--- NOTE | 2016-08-23 20:00 | NUR ---
PT RECEIVED RESTING IN BED WITH EYES CLOSED. ASSESSMENT COMPLETED PER FLOWSHEET. BED IN LOW POSITION. CALL LIGHT IN PT REACH.
[2016-08-23 23:41] LABS: APPEARANCE CLEAR (CLEAR); BILIRUBIN NEGATIVE (NEGATIVE); COLOR YELLOW (YELLOW); GLUCOSE NEGATIVE (NEGATIVE); KETONE NEGATIVE (NEGATIVE); LEUKOCYTE ESTERASE NEGATIVE (NEGATIVE); NITRITE NEGATIVE (NEGATIVE); PROTEIN NEGATIVE (NEGATIVE); SPECIFIC GRAVITY 1.015 (1.005-1.020); UROBILINOGEN NORMAL (NORMAL)
[2016-08-24] VITALS: BP 137/65
--- NOTE | 2016-08-24 03:49 | NUR ---
RN NOTE: PT RESTING IN SUPINE POSITION WITH EYES CLOSED AND UNLABORED BREATHING. IV IN LEFT FOREARM PATENT WITH NS INFUSING AT 100, AND CLINIMIX INFUSING AT 75 ML / HR. SCD'S IN USE ON BLE. BED ALARM AND SIDE RAILS UP X3 FOR SAFETY.
[2016-08-24 04:00] VITALS: BP 139/66
[2016-08-24 06:33] LABS: BASOPHILS 0.3 % (0-2); EOSINOPHILS 0.3 % (0-7); HEMOGLOBIN 8.7 g/dL (13.5-17.5); IMMATURE GRANULOCYTES 0.6 % (0-5); LYMPHOCYTES 20.5 % (15-50); MCH 31.4 pg (26.0-34.0); MCHC 33.5 g/dL (31.0-37.0); MCV 93.9 fL (80.0-100.0); MONOCYTES 2.1 % (2-11); NEUTROPHILS 76.2 % (40-80); PLATELET COUNT 173 10x3/uL (130-400); RBC 2.77 10x6/uL (4.20-6.10); RDW 14.6 % (11.5-14.5); WBC 3.4 10x3/uL (4.8-10.8)
[2016-08-24 07:09] LABS: ALBUMIN 2.3 g/dL (3.4-5.0); ALKALINE PHOSPHATASE 145 U/L (46-116); BILIRUBIN - TOTAL 0.48 mg/dL (0.2-1.3); CALC OSMOLALITY 270 mosm/kg (275-300); CARBON DIOXIDE 26.7 mmol/L (21.0-32.0); CHLORIDE - SERUM 101 mmol/L (98-107); CREATININE - SERUM 0.8 mg/dL (0.6-1.3); GLUCOSE 113 mg/dL (74-106); POTASSIUM - SERUM 4.4 mmol/L (3.5-5.1); PROTEIN - SERUM 5.6 g/dL (6.4-8.2); SODIUM 134 mmol/L (136-145); UREA NITROGEN 18 mg/dL (7-18); eGFR NON AFRICAN AMERICAN > 90 mL/min (90-120)
[2016-08-24 07:15] LABS: ALT (SGPT) 115 U/L (10-68)
--- NOTE | 2016-08-24 08:35 | NUR ---
PT SEEN AND ASSESSED. INCONT OF STOOL. CLEANED AND REPOSTIONED ON RIGHT SIDE WITH PILLOW TO BACK AND BETWEEN LEGS. STAGE 1 NOTED TO RIGHT BUTTOCK-NO SKIN BROKEN. DOES BLANCE. MEDIPLEX APPLIED. BOX ALARM AND BED ALARM ON FOR SAFETY. CALL LIGHT IN REACH. NO FAMILY AT BEDSIDE AT PRESENT
[2016-08-24 11:35] VITALS: BP 122/78
--- NOTE | 2016-08-24 12:24 | NUR ---
CM REASSESSMENT NOTE: CM SPOKE WITH [facility] AND THEY ARE COMING TO SPEAK WITH FAMILY AT 1PM TODAY.
--- NOTE | 2016-08-24 14:44 | NUR ---
CM REASSESSMENT NOTE: CM SPOKE WITH [facility] AND PATIENTS FAMILY ARE GOING WITH THEM BUT ARE REFUSING TO GO TO INPATIENT ON RESPITE UNTIL POSSIBLY SATURDAY. [facility] ([facility]) STATED JUST CALL THEM WHEN PATIENT IS READY TO DISCHARGE. CM CALLED DR. DEL CID AND SHE SPOKE WITH EXPLAINING PATIENT WAS NOT GOING TO GET BETTER. STATED OK BUT WE ARE STAYING HERE THROUGH THE WEEKEND. STATED THEY ARE LOOKING AT OTHER CARE HOMES THIS WEEKEND. DR. DEL ICD AND RICHARD CHRISTENSEN ARE BOTH AWARE OF THIS SITUATION. CM WILL CONTINUE TO FOLLOW.
[2016-08-24 16:00] VITALS: BP 142/60
[2016-08-24 20:00] VITALS: BP 142/67
--- NOTE | 2016-08-24 20:00 | NUR ---
PT RECEIVED RESTING IN BED WITH EYES CLOSED. DAUGHTER AT BEDSIDE. ASSESSMENT COMPLETED PER FLOWSHEET. BED IN LOW POSITION. SIDE RAILS UP X2. CALL LIGHT IN PT REACH.
--- NOTE | 2016-08-24 22:55 | NUR ---
PATIENT RESTING IN BED WITH NEB TREATMENT ON. NO VISIBLE SIGNS OF DISTRESS. BED IN LOWEST POSITION, CALL LIGHT WITHIN REACH, AND BED ALARM ON.
[2016-08-25] VITALS: BP 162/76
[2016-08-25 04:00] VITALS: BP 166/78
[2016-08-25 05:52] LABS: BASOPHILS 0.3 % (0-2); EOSINOPHILS 0.9 % (0-7); HEMATOCRIT 26.2 % (42.0-54.0); HEMOGLOBIN 8.6 g/dL (13.5-17.5); IMMATURE GRANULOCYTES 0.6 % (0-5); LYMPHOCYTES 24.9 % (15-50); MCH 30.7 pg (26.0-34.0); MCHC 32.8 g/dL (31.0-37.0); MCV 93.6 fL (80.0-100.0); MONOCYTES 1.2 % (2-11); NEUTROPHILS 72.1 % (40-80); PLATELET COUNT 177 10x3/uL (130-400); RDW 14.6 % (11.5-14.5); WBC 3.5 10x3/uL (4.8-10.8)
[2016-08-25 06:04] LABS: ALBUMIN 2.4 g/dL (3.4-5.0); ALKALINE PHOSPHATASE 149 U/L (46-116); ALT (SGPT) 128 U/L (10-68); BILIRUBIN - TOTAL 0.39 mg/dL (0.2-1.3); CALC OSMOLALITY 265 mosm/kg (275-300); CALCIUM 7.9 mg/dL (8.5-10.1); CARBON DIOXIDE 25.9 mmol/L (21.0-32.0); CHLORIDE - SERUM 98 mmol/L (98-107); CREATININE - SERUM 0.8 mg/dL (0.6-1.3); GLUCOSE 117 mg/dL (74-106); POTASSIUM - SERUM 4.2 mmol/L (3.5-5.1); PROTEIN - SERUM 5.8 g/dL (6.4-8.2); SODIUM 131 mmol/L (136-145); UREA NITROGEN 19 mg/dL (7-18); eGFR NON AFRICAN AMERICAN > 90 mL/min (90-120)
--- NOTE | 2016-08-25 08:58 | NUR ---
PT CONFUSED WITH FAMILY AT THE BED SIDE IV TO LEFT FOREARM PATENT AND INTACT SRX2 CALL LIGHT WITHIN REACH WILL CONTINUE TO MONITOR
[2016-08-25 09:55] VITALS: BP 127/70
[2016-08-25 12:31] VITALS: BP 137/61
[2016-08-25 16:50] VITALS: BP 127/89
[2016-08-25 19:00] VITALS: BP 116/57
[2016-08-26] VITALS: BP 132/66
[2016-08-26 04:00] VITALS: BP 161/73
--- NOTE | 2016-08-26 07:00 | NUR ---
PT RESTING IN BED WITH FAMILY AT BEDSIDE. EYES CLOSED. RESP EVEN AND UNLABORED. BED LOW, CALL LIGHT IN REACH, FAMILY DENIES NEEDS AT THIS TIME.
[2016-08-26 08:22] VITALS: BP 184/72
--- NOTE | 2016-08-26 10:00 | NUR ---
COMPLETE BED BATH AND LINEN CHANGE PROVIDED AT THIS TIME DUE TO INCONTINENCE OF STOOL. SMALL SOFT BM. MARQUEZ CATHERTER CARE PROVIDED WELL. LARGE BRUISE TO L FLANK NOTED. STAGE 2 TO COCCYX NOTED. BARRIER CREAM APPLIED. SCD'S AND TELEMETRY REAPPLIED. TURNED TO R SIDE. BED LOW, CALL LIGHT IN REACH, DENIES NEEDS. CPOC.
--- NOTE | 2016-08-26 12:40 | NUR ---
PT CONFUSED WITH FAMILY AT BEDSIDE. RESP EVEN AND NONLABORED IV TO RIGHT FOREARM PATENT AND INTACT. BED AT LOWEST SETTING CALL LIGHT WITHIN REACH OF FAMILY. WILL CONTINUE TO MONITOR
[2016-08-26 14:04] VITALS: BP 101/55
[2016-08-26 16:45] VITALS: BP 151/61
[2016-08-26 20:22] VITALS: BP 131/56
--- NOTE | 2016-08-26 22:33 | NUR ---
PATIENT RESTING WITH EYES CLOSED AND NO VISIBLE SIGNS OF DISTRESS. PATIENT'S BED IN LOWEST POSITION, CALL LIGHT WITHIN REACH, BED ALARM ON, AND BOX ALARM ON AND ATTACHED TO PATIENT.
[2016-08-27] VITALS: BP 115/78
[2016-08-27 04:00] VITALS: BP 135/67
[2016-08-27 06:20] LABS: BASOPHILS 0.3 % (0-2); EOSINOPHILS 1.3 % (0-7); HEMATOCRIT 28.5 % (42.0-54.0); HEMOGLOBIN 9.5 g/dL (13.5-17.5); IMMATURE GRANULOCYTES 0.5 % (0-5); LYMPHOCYTES 33.1 % (15-50); MCH 31.1 pg (26.0-34.0); MCHC 33.3 g/dL (31.0-37.0); MCV 93.4 fL (80.0-100.0); MEAN PLATELET VOLUME 9.5 fL (7.4-10.4); MONOCYTES 1.8 % (2-11); PLATELET COUNT 206 10x3/uL (130-400); RBC 3.05 10x6/uL (4.20-6.10)
[2016-08-27 06:53] LABS: ALBUMIN 2.7 g/dL (3.4-5.0); ALKALINE PHOSPHATASE 159 U/L (46-116); ALT (SGPT) 155 U/L (10-68); BILIRUBIN - TOTAL 0.45 mg/dL (0.2-1.3); CALC OSMOLALITY 264 mosm/kg (275-300); CALCIUM 8.2 mg/dL (8.5-10.1); CARBON DIOXIDE 25.2 mmol/L (21.0-32.0); CHLORIDE - SERUM 96 mmol/L (98-107); CREATININE - SERUM 0.9 mg/dL (0.6-1.3); GLUCOSE 92 mg/dL (74-106); POTASSIUM - SERUM 4.5 mmol/L (3.5-5.1); PROTEIN - SERUM 6.2 g/dL (6.4-8.2); SODIUM 130 mmol/L (136-145); UREA NITROGEN 23 mg/dL (7-18); eGFR NON AFRICAN AMERICAN 86 mL/min (90-120)
--- NOTE | 2016-08-27 07:45 | NUR ---
PT ASSESSMENT COMPLETE PT SLEEPING AROUSES MINIMALLY TO VERBAL STIMULI THEN QUICKLY BACK TO SLEEP BSA X 4 QUADS NO ACUTE DISTRESS NOTED HAS BED ALARM AND BOX ALARM NOTED CALL LIGHT IN REACH SIDE RAILS UP X 2
[2016-08-27 08:44] VITALS: BP 123/54
[2016-08-27 12:00] VITALS: BP 129/86
--- NOTE | 2016-08-27 13:26 | NUR ---
PT SEEN FOR PROFESSIONAL TUTOR. NO COMPLAINTS AT PRESENT. ORIENTED TO PERSON ONLY. FAMILY AT BEDSIDE
--- NOTE | 2016-08-27 15:26 | NUR ---
NO ACUTE DISTRESS NOTED PT FAMILY AT SIDE ATE 30 % OF LUNCH MEAL LATESHA VALLECILLO WOLF HUNTER FED PT
--- NOTE | 2016-08-27 15:49 | NUR ---
OT NOTE: PT SEEN AT BEDSIDE..ELEVATED HOB IN ORDER TO INCREASE ATTN TO TASK. PT REMAINS CONFUSED AND DISORIENTED X 3. CONT TO HAVEINCREASED DIFFICULTY WITH 1 STEP COMMANDS. A/AROM EXS; BED MOB WITH MOD/MAX ASSIST
[2016-08-27 16:56] VITALS: BP 114/54
--- NOTE | 2016-08-27 18:09 | NUR ---
REPORT CALLED TO INPATIENT HOSPICE UNIT AT [facility] SPOKE WITH LUCINDA JOE. PT TO GO VIA AMBULANCE
--- NOTE | 2016-08-27 18:20 | NUR ---
PT DISCHARGED TO [facility] VIA EMS AT THIS TIME FAMILY AT SIDE
== END 2016-08-27 19:26 | disposition home health service (06) | DRG 64 ==
LOC: D.ER 19:39 → D.MS 23:31
PROVIDERS: Family Medicine; Family Medicine Adult Medicine; ADMIT Family Medicine
DX: I63.9 Cerebral infarction, unspecified (principal); R53.2 Functional quadriplegia; N39.0 Urinary tract infection, site not specified; C85.90 Non-Hodgkin lymphoma, unspecified, unspecified site; E44.0 Moderate protein-calorie malnutrition; E87.1 Hypo-osmolality and hyponatremia; D61.818 Other pancytopenia; E86.0 Dehydration; R41.0 Disorientation, unspecified; R53.1 Weakness; F03.90 Unspecified dementia, unspecified severity, without behavioral disturbance, psychotic disturbance, mood disturbance, and anxiety; F17.200 Nicotine dependence, unspecified, uncomplicated; I69.314 Frontal lobe and executive function deficit following cerebral infarction; Z68.21 Body mass index [BMI] 21.0-21.9, adult; Z91.81 History of falling; N40.0 Benign prostatic hyperplasia without lower urinary tract symptoms